=== PATIENT | female | born 1985 | race African-American/Black ===

== ENCOUNTER 2016-04-03 23:56 | Emergency (ER) | payer MEDICAID, OTHER ==
[2016-04-04] MEDS ORDERED: IPRATROPIUM/ALBUTEROL 0.5-2.5 MG/3 ML AMPUL NEB ONE ×2 (00:31→01:34)
[2016-04-04] MEDS ORDERED: PREDNISONE 20 MG TABLET PO ONE (00:31)
[2016-04-04] MEDS: ALBUTEROL SULFATE 0.083% NEB 2.5 MG/3 ML AMPUL NEB SCH (01:00)
--- NOTE | 2016-04-04 01:37 | ER Document Report ---
ED General - General Chief Complaint: Asthma Exacerbation Stated Complaint: DIFFICULTY BREATHING Notes: Patient is a 30-year-old female with past medical history of asthma who presents with 2 days of progressively worsening shortness of breath and cough. States this feels similar to asthma exacerbations that she has had in the past. She has had one prior hospitalization for her asthma past but has never required intubation. States that she's been using an albuterol inhaler at home with minimal improvement of her symptoms. Nothing worsens her symptoms. She has not seen her primary care doctor regarding today's concerns. Denies any fever, increased sputum production, syncope, or chest pain. TRAVEL OUTSIDE OF THE [place] IN LAST 30 DAYS: No Past Medical History - General Information source: Patient - Social History Smoking Status: Never Smoker Chew tobacco use (# tins/day): No Frequency of alcohol use: Social Drug Abuse: None Lives with: Spouse/Significant other Family History: Reviewed & Not Pertinent Patient has suicidal ideation: No Patient has homicidal ideation: No Pulmonary Medical History: Reports: Hx Asthma Renal/ Medical History: Denies: Hx Peritoneal Dialysis Surgical Hx: Negative Review of Systems - Review of Systems Notes: Constitutional: Negative for fever. HENT: Negative for sore throat. Eyes: Negative for visual changes. Cardiovascular: Negative for chest pain. Respiratory: Positive for shortness of breath. Gastrointestinal: Negative for abdominal pain, vomiting or diarrhea. Genitourinary: Negative for dysuria. Musculoskeletal: Negative for back pain. Skin: Negative for rash. Neurological: Negative for headaches, weakness or numbness. 10 point ROS negative except as marked above and in HPI. Physical Exam - Vital signs Vitals: Temp Pulse Resp BP Pulse Ox 98.1 F 113 H 24 H 154/90 H 97 04/04/16 00:05 04/04/16 00:05 04/04/16 00:05 04/04/16 00:05 04/04/16 00:05 Interpretation: Tachycardic, Tachypneic Notes: PHYSICAL EXAMINATION: GENERAL: Well-appearing, well-nourished and in no acute distress. HEAD: Atraumatic, normocephalic. EYES: Pupils equal round and reactive to light, extraocular movements intact, sclera anicteric, conjunctiva are normal. ENT: nares patent, oropharynx clear without exudates. Moist mucous membranes. NECK: Normal range of motion, supple without lymphadenopathy LUNGS: Breath sounds clear to auscultation bilaterally and equal. Faint expiratory wheezing bilaterally. No respiratory distress HEART: Regular rate and rhythm without murmurs ABDOMEN: Soft, nontender, normoactive bowel sounds. No guarding, no rebound. No masses appreciated. EXTREMITIES: Normal range of motion, no pitting or edema. No cyanosis. NEUROLOGICAL: No focal neurological deficits. Moves all extremities spontaneously and on command. PSYCH: Normal mood, normal affect. SKIN: Warm, Dry, normal turgor, no rashes or lesions noted. Course - Re-evaluation Re-evalutation: 04/04/16 01:34 Patient presents with a mild exacerbation of their baseline asthma. Mild wheezing at time of presentation but vitals do not show significant hypoxemia or tachypnea at time of my assessment. No retractions. Patient did clinically improve after receiving nebulizers here in the emergency department. Chest x- ray without evidence of an acute pneumonia. Patient able to ambulate without any respiratory distress. Based on patient's overall reassuring assessment, I believe they are stable for outpatient management with steroids. I do not suspect an acute alternative pathology at this time based on history and exam including acute pulmonary embolus, ACS, pneumothorax, or aortic dissection. At this time will discharge with return precautions and follow-up recommendations. Verbal discharge instructions given a the bedside and opportunity for questions given. Medication warnings reviewed. Patient is in agreement with this plan and has verbalized understanding of return precautions and the need for primary care follow-up in the next 24-72 hours. - Vital Signs Vital signs: Temp Pulse Resp BP Pulse Ox 98.1 F 113 H 24 H 154/90 H 97 04/04/16 00:05 04/04/16 00:05 04/04/16 00:05 04/04/16 00:05 04/04/16 00:05 - Diagnostic Test Radiology reviewed: Image reviewed, Reports reviewed Radiology results interpreted by me: 04/04/16 03:07 Chest x-ray: No acute infiltrate Discharge - Discharge Clinical Impression: Asthma exacerbation Condition: Good Disposition: HOME, SELF-CARE Additional Instructions: You were seen for an asthma exacerbation. Your symptoms improved with treatment here in the emergency department. However, it is very important that you return to the emergency department immediately if you began to have worsening difficulty breathing that does not respond to your normal home nebulizers. You are also being sent home on a five-day course of steroids that you should start taking tomorrow. Please also follow closely with your primary care physician. you should also return to emergency department if you develop fever greater than 101, persistent cough, persistent vomiting, pass out, or any other symptoms that are concerning to you. Prescriptions: Prednisone [Deltasone 20 mg Tablet] 3 tab PO DAILY 5 Days Referrals: LANETTE MCBRIDE MD [Primary Care Provider] - Follow up tomorrow
[2016-04-04] MEDS ORDERED: ALBUTEROL SULFATE HFA (90 MCG/PUFF) 8 GM MDI (1 MDI/ER DISP) IH PRN (03:08)
[2016-04-04] MEDS ORDERED: HYDROCODONE/ACETAMINOPHEN 5-325 MG TABLET PO ONE (03:38)
[2016-04-04 03:48] VITALS: BP 152/66
== END 2016-04-04 03:49 | disposition home or self-care (01) ==
LOC: ER 23:56
DX: J45.901 Unspecified asthma with (acute) exacerbation (principal); R00.0 Tachycardia, unspecified
CPT/HCPCS: 94640 ×2; 99285; 71020; J7512; J3490; J7620

== ENCOUNTER 2016-04-18 19:52 | Emergency (ER) | payer OTHER ==
[2016-04-18] MEDS ORDERED: PREDNISONE 20 MG TABLET PO ONE (20:05)
[2016-04-18] MEDS ORDERED: IPRATROPIUM BROMIDE 0.02% NEB 0.5 MG/2.5 ML AMPUL NEB ONE (20:05)
--- NOTE | 2016-04-18 20:08 | ER Document Report ---
ED Medical Screen (RME) - General Stated Complaint: DIFFICULTY BREATHING Time seen by provider: 20:06 Mode of Arrival: Ambulatory Information source: Patient Notes: 30-year-old female presents to ED for cough congestion wheezing shortness of breath but denies fever. States she has had this going on for 2 weeks that she' s been here last and she has been using her nebulizer and inhaler. States she' s been to Dr. White also. I have greeted and performed a rapid initial assessment of this patient. A comprehensive ED assessment and evaluation of the patient, analysis of test results and completion of medical decision making process will be conducted by an additional ED providers. TRAVEL OUTSIDE OF THE [place] IN LAST 30 DAYS: No - Related Data Allergies/Adverse Reactions: No Known Allergies Allergy (Unverified 04/18/16 20:04) Past Medical History Pulmonary Medical History: Reports: Hx Asthma Renal/ Medical History: Denies: Hx Peritoneal Dialysis Physical Exam - Vital signs Vitals: Temp Pulse Resp BP Pulse Ox 98.1 F 110 H 18 150/78 H 97 04/18/16 19:58 04/18/16 19:58 04/18/16 19:58 04/18/16 19:58 04/18/16 19:58 Course - Vital Signs Vital signs: Temp Pulse Resp BP Pulse Ox 98.1 F 110 H 18 150/78 H 97 04/18/16 19:58 04/18/16 19:58 04/18/16 19:58 04/18/16 19:58 04/18/16 19:58
[2016-04-18] MEDS: ALBUTEROL SULFATE 0.083% NEB 2.5 MG/3 ML AMPUL NEB SCH ×2 (20:13→20:39)
[2016-04-18] MEDS ORDERED: NORMAL SALINE 1000 ML 1,000 ML IV ONE (22:07)
[2016-04-18] MEDS ORDERED: HYDROCODONE/ACETAMINOPHEN 5-325 MG TABLET PO ONE (22:07)
--- NOTE | 2016-04-18 22:09 | ER Document Report ---
ED Respiratory Problem - General Chief Complaint: Breathing Difficulty Stated Complaint: DIFFICULTY BREATHING Mode of Arrival: Ambulatory Notes: Patient is a 30-year-old female that comes emergency department for chief complaint of wheezing, cough, difficulty resting, and occasionally coughing until she throws up. She states she was seen here about 2 weeks ago, she has seen her primary care provider who put her on Tessalon, Flonase, Spiriva, in addition to her albuterol treatments at home. She denies fever. She states that she has not slept in a couple of days because she cannot stop coughing. She denies any smoking history. She denies any other medical problems. TRAVEL OUTSIDE OF THE [place] IN LAST 30 DAYS: No - Related Data Allergies/Adverse Reactions: No Known Allergies Allergy (Unverified 04/18/16 20:04) Past Medical History - General Information source: Patient - Social History Smoking Status: Never Smoker Chew tobacco use (# tins/day): No Frequency of alcohol use: None Drug Abuse: None Lives with: Family Family History: Reviewed & Not Pertinent Patient has suicidal ideation: No Patient has homicidal ideation: No Pulmonary Medical History: Reports: Hx Asthma Renal/ Medical History: Denies: Hx Peritoneal Dialysis Surgical Hx: Negative - Immunizations Immunizations up to date: Yes Hx Diphtheria, Pertussis, Tetanus Vaccination: Yes Review of Systems - Review of Systems Constitutional: See HPI EENT: See HPI Cardiovascular: No symptoms reported Respiratory: See HPI Gastrointestinal: See HPI Genitourinary: No symptoms reported Female Genitourinary: No symptoms reported Musculoskeletal: No symptoms reported Skin: No symptoms reported Hematologic/Lymphatic: No symptoms reported Neurological/Psychological: No symptoms reported Physical Exam - Vital signs Vitals: Temp Pulse Resp BP Pulse Ox 98.1 F 110 H 18 150/78 H 97 04/18/16 19:58 04/18/16 19:58 04/18/16 19:58 04/18/16 19:58 04/18/16 19:58 Interpretation: Normal - General General appearance: Appears well, Alert In distress: None - Patient alert, talkative, well appearing - HEENT Head: Normocephalic, Atraumatic Eyes: Normal Pupils: PERRL - Respiratory Respiratory status: No respiratory distress. No: Respiratory distress, Labored , Tachypnea Chest status: Nontender Breath sounds: Nonproductive cough - Occasional coughing episodes, Wheezing - Patient does have slight end expiratory wheezing Chest palpation: Normal - Cardiovascular Rhythm: Regular. No: Tachycardia - No tachycardia on my exam Heart sounds: Normal auscultation, S1 appreciated, S2 appreciated Murmur: No - Abdominal Inspection: Normal Distension: No distension Bowel sounds: Normal Tenderness: Nontender Organomegaly: No organomegaly - Back Back: Normal, Nontender. No: Tender - Extremities General upper extremity: Normal inspection, Nontender, Normal color, Normal ROM , Normal temperature General lower extremity: Normal inspection, Nontender, Normal color, Normal ROM , Normal temperature, Normal weight bearing. No: Juanita's sign - Neurological Neuro grossly intact: Yes Cognition: Normal Orientation: AAOx4 [place] Coma Scale Eye Opening: Spontaneous [place] Coma Scale Verbal: Oriented [place] Coma Scale Motor: Obeys Commands [place] Coma Scale Total: 15 Speech: Normal Motor strength normal: LUE, RUE, LLE, RLE Sensory: Normal - Psychological Associated symptoms: Normal affect, Normal mood - Skin Skin Temperature: Warm Skin Moisture: Dry Skin Color: Normal Course - Re-evaluation Re-evalutation: Patient significantly improved on reexamination, talking in full sentences, smiling and laughing. Very faint expiratory wheezing now. Occasional coughing episodes. Chest x-ray is unremarkable again. Patient is not hypoxic. Will complete magnesium. On reevaluation patient still well-appearing, 78 go home, providing with steroids, symptom management, instructed close primary care follow-up, discussed return precautions, patient states understanding and agreement. 04/19/16 05:35 - Vital Signs Vital signs: Temp Pulse Resp BP Pulse Ox 98.1 F 98 22 H 148/78 H 97 04/18/16 19:58 04/19/16 01:24 04/18/16 22:10 04/19/16 01:24 04/19/16 01:24 Discharge - Discharge Clinical Impression: Cough, Wheezing, Asthma exacerbation Upper respiratory infection Qualifiers: URI type: unspecified URI Qualified Code(s): J06.9 - Acute upper respiratory infection, unspecified Condition: Stable Disposition: HOME, SELF-CARE Additional Instructions: Chest x-ray does not show any abnormality, examination is consistent with bronchitis and asthma exacerbation. Take prednisone as directed, take the Dougherty if needed for cough and to help with sleep, continue your prescribed medications and albuterol. Rest, drink plenty of fluids. Return to the emergency department for any concerning or worsening symptoms. Prescriptions: Hydrocodone/Acetaminophen [Dougherty 5-325 mg Tablet] 1 - 2 tab PO ASDIR #15 tablet Prednisone 20 mg PO DAILY #15 tablet Forms: Return to Work, Elevated Blood Pressure Referrals: LANETTE MCBRIDE MD [Primary Care Provider] - Follow up in 3-5 days
[2016-04-18] MEDS: MAGNESIUM SULFATE/D5W 100 ML IV SCH (22:21)
[2016-04-19] MEDS: MAGNESIUM SULFATE/D5W 100 ML IV SCH (00:08)
[2016-04-19] MEDS ORDERED: HYDROCODONE/ACETAMINOPHEN 5-325 MG 6 TAB/DSPK PO PRN (01:05)
[2016-04-19 01:33] VITALS: BP 148/78
== END 2016-04-19 01:32 | disposition home or self-care (01) ==
LOC: ER 19:52
DX: J45.901 Unspecified asthma with (acute) exacerbation (principal); J06.9 Acute upper respiratory infection, unspecified; R06.02 Shortness of breath; R05 Cough
CPT/HCPCS: 94640 ×2; 99283; 96365; 71010; J3475 ×2; J7512; J7030; J3490

== ENCOUNTER 2016-05-19 17:22 | Inpatient (IN) | payer OTHER ==
[2016-05-19] MEDS ORDERED: IPRATROPIUM/ALBUTEROL 0.5-2.5 MG/3 ML AMPUL NEB ONE ×2 (17:43→19:10)
--- NOTE | 2016-05-19 17:43 | ER Document Report ---
ED Medical Screen (RME) - General Stated Complaint: SHORTNESS OF BREATH Notes: 30 yo asthmatic c/o increased shortness of breath and wheezing since yesterday. taking home meds without improvement. finished prednisone taper 4 days ago. no fever. TRAVEL OUTSIDE OF THE [place] IN LAST 30 DAYS: No - Related Data Allergies/Adverse Reactions: No Known Allergies Allergy (Verified 05/19/16 17:40) Past Medical History Pulmonary Medical History: Reports: Hx Asthma Renal/ Medical History: Denies: Hx Peritoneal Dialysis Past Surgical History: Reports: Hx Section - Immunizations Immunizations up to date: Yes Hx Diphtheria, Pertussis, Tetanus Vaccination: Yes Physical Exam - Vital signs Vitals: Temp Pulse Resp BP Pulse Ox 98.4 F 127 H 28 H 172/89 H 96 05/19/16 17:39 05/19/16 17:39 05/19/16 17:39 05/19/16 17:39 05/19/16 17:39 Course - Vital Signs Vital signs: Temp Pulse Resp BP Pulse Ox 98.4 F 127 H 28 H 172/89 H 96 05/19/16 17:39 05/19/16 17:39 05/19/16 17:39 05/19/16 17:39 05/19/16 17:39
[2016-05-19] MEDS ORDERED: PREDNISONE 20 MG TABLET PO ONE (17:44)
[2016-05-19 18:05] LABS: ABSOLUTE EOSINOPHILS # (AUTO) 0.8 10^3/uL (0.0-0.6); ABSOLUTE LYMPHOCYTES (AUTO) 1.7 10^3/uL (0.5-4.7); ABSOLUTE MONOCYTES (AUTO) 0.9 10^3/uL (0.1-1.4); BASOPHILS % (AUTO) 0.2 % (0-2); EOSINOPHILS % (AUTO) 6.4 % (0-6); HEMATOCRIT 37.6 % (36.0-47.0); HEMOGLOBIN 12.5 g/dL (12.0-15.5); HGB HCT DIFFERENCE -0.1; LYMPHOCYTES % (AUTO) 13.5 % (13-45); MEAN CORPUSCULAR HEMOGLOBIN 26.4 pg (27.0-33.4); MEAN CORPUSCULAR HGB CONC 33.2 g/dL (32.0-36.0); MEAN CORPUSCULAR VOLUME 80 fl (80-97); MONOCYTES % (AUTO) 7.1 % (3-13); RED BLOOD COUNT 4.73 10^6/uL (3.72-5.28); RED CELL DISTRIBUTION WIDTH 14.9 % (11.5-14.0); SEGMENTED NEUTROPHILS % (AUTO) 72.8 % (42-78); WHITE BLOOD COUNT 12.4 10^3/uL (4.0-10.5)
[2016-05-19] MEDS ORDERED: ALBUTEROL SULFATE 0.083% NEB 2.5 MG/3 ML AMPUL NEB ONE ×2 (18:09→21:06)
--- NOTE | 2016-05-19 18:16 | ER Document Report ---
ED Respiratory Problem - General Mode of Arrival: Ambulatory Information source: Patient TRAVEL OUTSIDE OF THE [place] IN LAST 30 DAYS: No - HPI Patient complains to provider of: Asthma, Short of breath Onset: Yesterday Duration: Continuous Initiating Event: URI Quality of pain: No pain Severity: Moderate Context: Hx asthma. denies: Smoker Short of Breath: Moderate Cough: Nonproductive Sputum amount: None At home treatment: Bronchodilators, Oral steroids - FINISHED A 12-DAY TAPER OF PREDNISONE 2 DAYS AGO, Anuradha Associated symptoms: Cough, Wheezing Similar symptoms previously: Yes Recently seen / treated by doctor: Yes <CLOVER TAYLOR - Last Filed: 05/19/16 20:27> <YOMAIRA GEORGES - Last Filed: 05/19/16 21:51> - General Chief Complaint: Asthma Exacerbation Stated Complaint: SHORTNESS OF BREATH - Related Data Allergies/Adverse Reactions: No Known Allergies Allergy (Verified 05/19/16 17:40) Past Medical History - General Information source: Patient - Social History Smoking Status: Unknown if Ever Smoked Cigarette use (# per day): No Chew tobacco use (# tins/day): No Frequency of alcohol use: None Drug Abuse: None Lives with: Family Family History: Reviewed & Not Pertinent Patient has suicidal ideation: No Patient has homicidal ideation: No - Past Medical History Cardiac Medical History: Reports: None Pulmonary Medical History: Reports: Hx Asthma EENT Medical History: Reports: None Neurological Medical History: Reports: None Endocrine Medical History: Reports: None Renal/ Medical History: Reports: None. Denies: Hx Peritoneal Dialysis Malignancy Medical History: Reports: None GI Medical History: Reports: None Musculoskeltal Medical History: Reports None Psychiatric Medical History: Reports: None Past Surgical History: Reports: Hx Section - Immunizations Immunizations up to date: Yes Hx Diphtheria, Pertussis, Tetanus Vaccination: Yes <CLOVER TAYLOR - Last Filed: 05/19/16 20:27> Review of Systems - Review of Systems Constitutional: No symptoms reported EENT: No symptoms reported Cardiovascular: No symptoms reported Respiratory: See HPI Gastrointestinal: No symptoms reported Genitourinary: No symptoms reported Female Genitourinary: No symptoms reported. denies: Musculoskeletal: No symptoms reported Skin: No symptoms reported Neurological/Psychological: No symptoms reported <CLOVER TAYLOR - Last Filed: 05/19/16 20:27> Physical Exam - Vital signs Interpretation: Tachycardic, Tachypneic. No: Hypoxic, Febrile - General General appearance: Alert, Anxious In distress: Mild - RESP - HEENT Head: Normocephalic Eyes: Normal Conjunctiva: Normal Ears: Normal Nasal: Normal Mouth/Lips: Normal Mucous membranes: Normal Pharynx: Normal Neck: Normal - Respiratory Respiratory status: Respiratory distress Chest status: Nontender Breath sounds: Wheezing - ALL LUNG CHAMPION., Other - PROLONGD EXP. PHASE - Cardiovascular Rhythm: Regular, Tachycardia Heart sounds: Normal auscultation Murmur: No - Abdominal Inspection: Normal - Back Back: Normal - Extremities General upper extremity: Normal inspection General lower extremity: Normal inspection - Neurological Neuro grossly intact: Yes Cognition: Normal Orientation: AAOx4 - Psychological Associated symptoms: Normal affect, Normal mood - Skin Skin Temperature: Warm Skin Moisture: Dry Skin Color: Normal Skin Turgor: Elastic <CLOVER TAYLOR - Last Filed: 05/19/16 20:27> Course - Laboratory Result Diagrams: 05/19/16 19:30 05/19/16 19:30 - EKG Interpretation by Ri EKG shows normal: Sinus rhythm, [place], Intervals, QRS Complexes, ST-T Waves Rate: Tachycardia - Transfer of Care Care transferred to following provider: DR. GEORGES @2030 hrs <CLOVER TAYLOR - Last Filed: 05/19/16 20:27> - Laboratory Result Diagrams: 05/19/16 19:30 05/19/16 19:30 <YOMAIRA GEORGES - Last Filed: 05/19/16 21:51> - Vital Signs Vital signs: Temp Pulse Resp BP Pulse Ox 98.4 F 127 H 29 H 153/101 H 97 05/19/16 17:39 05/19/16 17:39 05/19/16 19:01 05/19/16 19:01 05/19/16 19:01 - Laboratory Laboratory results interpreted by wy: 05/19/16 05/19/16 05/19/16 17:50 17:50 19:30 WBC 12.4 H 11.7 H MCV 79 L MCH 26.4 L 26.7 L RDW 14.9 H 15.2 H Eosinophils % 6.4 H 6.2 H Absolute Neutrophils 9.0 H 8.5 H Absolute Eosinophils 0.8 H 0.7 H D-Dimer Potassium 3.5 L BUN 4 L Creatinine 05/19/16 05/19/16 19:30 19:30 WBC MCV MCH RDW Eosinophils % Absolute Neutrophils Absolute Eosinophils D-Dimer 0.56 H Potassium BUN 3 L Creatinine 0.47 L Discharge <CLOVER TAYLOR - Last Filed: 05/19/16 20:27> - Discharge Admitting Provider: [facility] Unit Admitted: [facility] <YOMAIRA GEORGES - Last Filed: 05/19/16 21:51> - Discharge Clinical Impression: Respiratory distress, Asthma exacerbation Condition: Fair Disposition: ADMITTED INPATIENT
[2016-05-19 18:22] LABS: ANION GAP 13 (5-19); BLOOD UREA NITROGEN 4 mg/dL (7-20); CALCIUM 9.2 mg/dL (8.4-10.2); CARBON DIOXIDE 24 mmol/L (22-30); CHLORIDE 102 mmol/L (98-107); CREATININE RESULT 0.54 mg/dL (0.52-1.25); GLUCOSE 93 mg/dL (75-110); POTASSIUM 3.5 mmol/L (3.6-5.0); SODIUM 138.5 mmol/L (137-145); TOTAL PROTEIN 6.9 g/dL (6.3-8.2)
[2016-05-19 18:23] LABS: ALANINE AMINOTRANSFERASE 35 U/L (9-52); ALKALINE PHOSPHATASE 63 U/L (38-126); ASPARTATE AMINO TRANSFERASE 22 U/L (14-36); BILIRUBIN,DIRECT 0.1 mg/dL (0.0-0.4); BILIRUBIN,TOTAL 0.4 mg/dL (0.2-1.3)
[2016-05-19] MEDS ORDERED: DEXAMETHASONE SOD PHOS INJ 10 MG/1 ML VIAL IV ONE (19:11)
[2016-05-19 19:39] LABS: ABSOLUTE BASOPHILS # (AUTO) 0.1 10^3/uL (0.0-0.2); ABSOLUTE EOSINOPHILS # (AUTO) 0.7 10^3/uL (0.0-0.6); ABSOLUTE LYMPHOCYTES (AUTO) 1.7 10^3/uL (0.5-4.7); ABSOLUTE MONOCYTES (AUTO) 0.8 10^3/uL (0.1-1.4); ABSOLUTE NEUT (AUTO) 8.5 10^3/uL (1.7-8.2); BASOPHILS % (AUTO) 0.4 % (0-2); EOSINOPHILS % (AUTO) 6.2 % (0-6); HEMATOCRIT 37.5 % (36.0-47.0); HEMOGLOBIN 12.7 g/dL (12.0-15.5); HGB HCT DIFFERENCE 0.6; LYMPHOCYTES % (AUTO) 14.4 % (13-45); MEAN CORPUSCULAR HEMOGLOBIN 26.7 pg (27.0-33.4); MEAN CORPUSCULAR HGB CONC 33.7 g/dL (32.0-36.0); MEAN CORPUSCULAR VOLUME 79 fl (80-97); MONOCYTES % (AUTO) 6.5 % (3-13); RED BLOOD COUNT 4.75 10^6/uL (3.72-5.28); RED CELL DISTRIBUTION WIDTH 15.2 % (11.5-14.0); SEGMENTED NEUTROPHILS % (AUTO) 72.5 % (42-78); WHITE BLOOD COUNT 11.7 10^3/uL (4.0-10.5)
[2016-05-19 19:57] LABS: ALANINE AMINOTRANSFERASE 35 U/L (9-52); ALBUMIN 3.9 g/dL (3.5-5.0); ALKALINE PHOSPHATASE 67 U/L (38-126); ASPARTATE AMINO TRANSFERASE 24 U/L (14-36); BILIRUBIN,DIRECT 0.1 mg/dL (0.0-0.4); BILIRUBIN,TOTAL 0.4 mg/dL (0.2-1.3); BLOOD UREA NITROGEN 3 mg/dL (7-20); CALCIUM 9.2 mg/dL (8.4-10.2); CARBON DIOXIDE 24 mmol/L (22-30); CHLORIDE 104 mmol/L (98-107); CREATINE KINASE 91 U/L (30-135); CREATININE RESULT 0.47 mg/dL (0.52-1.25); GLUCOSE 95 mg/dL (75-110); POTASSIUM 3.7 mmol/L (3.6-5.0); TOTAL PROTEIN 6.7 g/dL (6.3-8.2)
[2016-05-19 20:00] LABS: ANION GAP 10 (5-19); SODIUM 137.8 mmol/L (137-145)
[2016-05-19 20:09] LABS: CREATINE KINASE MB 0.57 ng/mL (<4.55)
[2016-05-19 20:10] LABS: TROPONIN I < 0.012 ng/mL
[2016-05-19] MEDS ORDERED: MAGNESIUM SULFATE PF/INJ 40 MEQ/10 ML SDV IV ONE (20:24)
[2016-05-19] MEDS ORDERED: MAGNESIUM SULFATE/D5W 100 ML IV SCH (21:00)
--- NOTE | 2016-05-19 21:09 | ER Document Report ---
Doctor's Note Notes: 05/19/16 21:07 Care of this patient was transferred to me by Dr. Ant Perez. When she says the patient shortly after receiving signout. Immediately upon entering the room , patient was visibly in respiratory distress with tachypnea at 37 breast per minute. She has labored respirations with supraclavicular retractions. She has diffuse wheezing in all lung coreas worsen the expiratory phase. She was tachycardic at 128. Patient appears to be in moderate to severe respiratory distress and I immediately contacted respiratory therapy to place patient on BiPAP with continuous in-line nebulization of albuterol. Patient is severely ill at this time will require additional reassessments and admission. 05/19/16 21:49 On repeat assessment patient's work of breathing has significantly improved on BiPAP. A low dose of ketamine 15 mg IV was given for anxiolysis and bronchodilation. Continuous nebulizers are ongoing. She continues to have significant expiratory wheezing in all lung coreas although air movement is much improved. Discussed this case with Dr. Gann who has accepted for admission. Critical care time: 32 minutes Critical care time spent obtaining history from patient or surrogate, discussions with consultants, development of treatment plan with patient or surrogate, evaluation of patient's response to treatment, examination of patient , ordering and performing treatments and interventions, ordering and review of laboratory studies, re-evaluation of patient's condition, ordering and review of radiographic studies and review of old charts
[2016-05-19] MEDS ORDERED: KETAMINE HCL INJ 500 MG/10 ML VIAL IV ONE (21:16)
[2016-05-19] MEDS ORDERED: ACETAMINOPHEN 325 MG TABLET PO PRN (21:34)
[2016-05-19] MEDS ORDERED: GUAIFENESIN SYRP 200 MG/10 ML UDC PO PRN (21:34)
[2016-05-19] MEDS ORDERED: ALBUTEROL SULFATE 0.083% NEB 2.5 MG/3 ML AMPUL NEB PRN (21:34)
[2016-05-19] MEDS: GUAIFENESIN 600 MG TABLET.SA PO SCH (22:00)
[2016-05-19] MEDS: HEPARIN SOD (PORCINE) 5,000 UNIT/ML 1 ML SYRINGE SUBCUT SCH (22:00)
[2016-05-19] MEDS ORDERED: LORATADINE 10 MG TABLET PO ONE (22:00)
[2016-05-19] MEDS ORDERED: METHYLPREDNISOLONE INJ 125 MG/2 ML SDV IV SCH (22:00)
[2016-05-19 23:47] LABS: VENOUS BLOOD BASE EXCESS -3.6 mmol/L; VENOUS BLOOD HCO3 21.7 mmol/L (20-32); VENOUS BLOOD PCO2 40.1 mmHg (35-63); VENOUS BLOOD PH 7.35 (7.30-7.42)
[2016-05-20] MEDS ORDERED: PREDNISONE 20 MG TABLET PO ONE (00:15)
[2016-05-20] MEDS: FAMOTIDINE INJ/PF 20 MG/2 ML SDV IV SCH ×3 (00:35→21:57)
[2016-05-20] MEDS: FLUTICASONE NASAL SPRAY 50 MCG/SPRY 120 SPRAY/16 GM NASL SCH ×2 (00:36→21:58)
[2016-05-20] MEDS ORDERED: SPIRONOLACTONE 25 MG TABLET PO ONE (01:00)
[2016-05-20] MEDS ORDERED: AMLODIPINE BESYLATE 10 MG TABLET PO ONE (01:00)
[2016-05-20] MEDS: IPRATROPIUM/ALBUTEROL 0.5-2.5 MG/3 ML AMPUL NEB SCH ×5 (01:30→23:40)
--- NOTE | 2016-05-20 03:14 | PDOC H&P ---
History of Present Illness Admission Date/PCP: 05/19/16 21:34 Patient complains of: Shortness of breath and wheeze History of Present Illness: LC VASQUEZ is a 30 year old female with a past medical history of lifelong asthma, morbid obesity, hypertension and recent bronchitis lasting approximately 3 months and recurrent asthma exacerbations who discontinued a prednisone taper approximate 48 hours ago and has had a nonproductive cough, wheeze and shortness of breath prompting him to seek evaluation emergency room where she's found to be in a tripod position and severe respiratory distress requiring BiPAP referred to the hospitalist for admission. Patient is unaware of underlying GERD, sinus allergies, sore throat or infectious contacts. Past Medical History Cardiac Medical History: Reports: None Pulmonary Medical History: Reports: Asthma, Bronchitis EENT Medical History: Reports: None Neurological Medical History: Reports: None Endocrine Medical History: Reports: None Renal/ Medical History: Reports: None Malignancy Medical History: Reports: None GI Medical History: Reports: None Musculoskeltal Medical History: Reports: None Psychiatric Medical History: Reports: None Denies: Tobacco Dependency Past Surgical History Past Surgical History: Reports: Section Social History Information Source: Patient Lives with: Family Smoking Status: Unknown if Ever Smoked Frequency of Alcohol Use: None Drugs: None - Advance Directive Resuscitation Status: Full Code Family History Family History: Reviewed & Not Pertinent Parental Family History Reviewed: Yes Children Family History Reviewed: Yes Sibling(s) Family History Reviewed.: Yes Medication/Allergy Home Medications: Albuterol Sulfate [Ventolin Hfa] 2 puff IH Q4 05/19/16 Ipratropium/Albuterol Sulfate [Duoneb 3 ml Ampul] 1 vial IH Q4 PRN 05/19/16 Levothyroxine Sodium 1 tab PO DAILY 05/19/16 Lisinopril/Hydrochlorothiazide [Lisinopril-Hctz 20-12.5 mg Tab] 1 tab PO DAILY 05/19/16 Montelukast Sodium [Singulair 10 mg Tablet] 10 mg PO QHS 05/19/16 Phentermine HCl 1 tab PO DAILY 05/19/16 Allergies/Adverse Reactions: No Known Allergies Allergy (Verified 05/19/16 17:40) Review of Systems ROS unobtainable: Other - Severe respiratory distress requiring BiPAP unable to speak in full sentences secondary to speech triggering cough Physical Exam Vital Signs: Temp Pulse Resp BP Pulse Ox 98.4 F 112 H 18 137/83 H 98 05/20/16 01:33 05/20/16 01:50 05/20/16 02:01 05/20/16 02:00 05/20/16 02:01 General appearance: PRESENT: cooperative, morbidly obese, severe distress Eye exam: PRESENT: conjunctiva pink, EOMI, PERRLA. ABSENT: scleral icterus Ear exam: PRESENT: normal external ear exam Mouth exam: PRESENT: moist, tongue midline Neck exam: ABSENT: carotid bruit, JVD, lymphadenopathy, thyromegaly Respiratory exam: PRESENT: accessory muscle use, crackles, prolonged expiratory phas, rales, retraction, rhonchi, symmetrical, tachypnea, wheezes. ABSENT: chest wall tenderness Cardiovascular exam: PRESENT: RRR. ABSENT: diastolic murmur, rubs, systolic murmur Pulses: PRESENT: normal dorsalis pedis pul Vascular exam: PRESENT: normal capillary refill GI/Abdominal exam: PRESENT: normal bowel sounds, soft. ABSENT: distended, guarding, mass, organolmegaly, rebound, tenderness Rectal exam: PRESENT: deferred Extremities exam: PRESENT: full ROM. ABSENT: calf tenderness, clubbing, pedal edema Neurological exam: PRESENT: alert, awake, oriented to person, oriented to place , oriented to time, oriented to situation, CN II-XII grossly intact. ABSENT: motor sensory deficit Psychiatric exam: PRESENT: appropriate affect, normal mood. ABSENT: homicidal ideation, suicidal ideation Skin exam: PRESENT: dry, intact, warm. ABSENT: cyanosis, rash Results Laboratory Results: 05/19/16 23:36 VBG pH 7.35 VBG pCO2 40.1 VBG HCO3 21.7 VBG Base Excess -3.6 Impressions: Chest X-Ray 05/19/16 17:44 IMPRESSION: NO SIGNIFICANT RADIOGRAPHIC FINDING IN THE CHEST. Assessment & Plan - Diagnosis (1) Bronchitis Is this a current diagnosis for this admission?: YesPlan: Albuterol, Atrovent, prednisone, Flonase, Claritin, Levaquin reevaluation chest imaging if not significantly improved (2) GERD (gastroesophageal reflux disease) Is this a current diagnosis for this admission?: YesPlan: Patient's habitus is at high risk for GERD I am concerned for it contributing to her asthma exacerbation she'll receive proton pump inhibitor (3) Morbid obesity Is this a current diagnosis for this admission?: YesPlan: Morbid obesity will evaluate for metabolic cause with evaluation of thyroid function and dietitian consultation (4) Asthma exacerbation Is this a current diagnosis for this admission?: YesPlan: Please see #1 I suspect her exacerbation is likely triggered to bronchitis continue BiPAP followed by peak flow evaluations as tolerated (5) Respiratory distress Is this a current diagnosis for this admission?: YesPlan: Secondary to bronchitis and asthma consider ABG and reevaluation of chest imaging if not significantly improved. - Time Time Spent: 30 to 50 Minutes - Inpatient Certification Medical Necessity: Need Close Monitoring Due to Risk of Patient Decompensation
[2016-05-20] MEDS: HEPARIN SOD (PORCINE) 5,000 UNIT/ML 1 ML SYRINGE SUBCUT SCH ×3 (06:01→22:38)
[2016-05-20 06:53] LABS: ABSOLUTE EOSINOPHILS # (AUTO) 0.1 10^3/uL (0.0-0.6); ABSOLUTE LYMPHOCYTES (AUTO) 0.8 10^3/uL (0.5-4.7); ABSOLUTE MONOCYTES (AUTO) 0.3 10^3/uL (0.1-1.4); ABSOLUTE NEUT (AUTO) 10.9 10^3/uL (1.7-8.2); BASOPHILS % (AUTO) 0.3 % (0-2); EOSINOPHILS % (AUTO) 0.5 % (0-6); HEMATOCRIT 36.4 % (36.0-47.0); HEMOGLOBIN 12.2 g/dL (12.0-15.5); HGB HCT DIFFERENCE 0.2; LYMPHOCYTES % (AUTO) 6.7 % (13-45); MEAN CORPUSCULAR HEMOGLOBIN 26.2 pg (27.0-33.4); MEAN CORPUSCULAR HGB CONC 33.5 g/dL (32.0-36.0); MEAN CORPUSCULAR VOLUME 78 fl (80-97); MONOCYTES % (AUTO) 2.7 % (3-13); RED BLOOD COUNT 4.65 10^6/uL (3.72-5.28); RED CELL DISTRIBUTION WIDTH 15.3 % (11.5-14.0); SEGMENTED NEUTROPHILS % (AUTO) 89.8 % (42-78); WHITE BLOOD COUNT 12.1 10^3/uL (4.0-10.5)
[2016-05-20 07:14] LABS: ANION GAP 11 (5-19); BLOOD UREA NITROGEN 5 mg/dL (7-20); CALCIUM 9.6 mg/dL (8.4-10.2); CARBON DIOXIDE 20 mmol/L (22-30); CHLORIDE 105 mmol/L (98-107); CREATININE RESULT 0.43 mg/dL (0.52-1.25); GLUCOSE 151 mg/dL (75-110); POTASSIUM 4.2 mmol/L (3.6-5.0)
[2016-05-20] MEDS ORDERED: LANSOPRAZOLE 30 MG TAB.RAP.DR PO ONE (08:15)
--- NOTE | 2016-05-20 08:16 | EKG REPORT ---
SEVERITY:- OTHERWISE NORMAL ECG - SINUS TACHYCARDIA : Confirmed by: Jodie Jackson 20-May-2016 08:15:43
[2016-05-20] MEDS ORDERED: LEVOTHYROXINE SODIUM 0.025 MG TABLET PO SCH (10:00)
[2016-05-20] MEDS: LEVOFLOXACIN 750 MG/D5W RTU 150 ML IV SCH (11:30)
[2016-05-20] MEDS: PREDNISONE 20 MG TABLET PO SCH ×2 (11:34→17:24)
[2016-05-20] MEDS: LORATADINE 10 MG TABLET PO SCH (11:34)
[2016-05-20] MEDS: GUAIFENESIN 600 MG TABLET.SA PO SCH ×2 (11:34→21:56)
[2016-05-20] MEDS: LEVOTHYROXINE SODIUM 0.025 MG TABLET PO SCH (11:35)
[2016-05-20] MEDS ORDERED: LORAZEPAM INJ 2 MG/1 ML VIAL IV PRN (12:15)
[2016-05-20] MEDS ORDERED: IPRATROPIUM/ALBUTEROL 0.5-2.5 MG/3 ML AMPUL NEB PRN (13:21)
[2016-05-20] MEDS: LANSOPRAZOLE 30 MG TAB.RAP.DR PO SCH (17:24)
[2016-05-20] MEDS: MONTELUKAST SODIUM 10 MG TABLET PO SCH (21:57)
[2016-05-21 04:35] LABS: ABSOLUTE EOSINOPHILS # (AUTO) 0.1 10^3/uL (0.0-0.6); ABSOLUTE LYMPHOCYTES (AUTO) 1.4 10^3/uL (0.5-4.7); ABSOLUTE NEUT (AUTO) 12.3 10^3/uL (1.7-8.2); BASOPHILS % (AUTO) 0.1 % (0-2); EOSINOPHILS % (AUTO) 0.4 % (0-6); HEMATOCRIT 32.1 % (36.0-47.0); HGB HCT DIFFERENCE 0.9; LYMPHOCYTES % (AUTO) 9.5 % (13-45); MEAN CORPUSCULAR HEMOGLOBIN 26.8 pg (27.0-33.4); MEAN CORPUSCULAR HGB CONC 34.2 g/dL (32.0-36.0); MEAN CORPUSCULAR VOLUME 79 fl (80-97); MONOCYTES % (AUTO) 6.5 % (3-13); RED BLOOD COUNT 4.08 10^6/uL (3.72-5.28); RED CELL DISTRIBUTION WIDTH 15.2 % (11.5-14.0); SEGMENTED NEUTROPHILS % (AUTO) 83.5 % (42-78); WHITE BLOOD COUNT 14.7 10^3/uL (4.0-10.5)
[2016-05-21] MEDS: IPRATROPIUM/ALBUTEROL 0.5-2.5 MG/3 ML AMPUL NEB SCH ×5 (04:55→20:07)
[2016-05-21] MEDS: HEPARIN SOD (PORCINE) 5,000 UNIT/ML 1 ML SYRINGE SUBCUT SCH ×3 (05:56→23:46)
[2016-05-21] MEDS: LANSOPRAZOLE 30 MG TAB.RAP.DR PO SCH ×2 (05:57→17:05)
[2016-05-21] MEDS: FAMOTIDINE INJ/PF 20 MG/2 ML SDV IV SCH ×2 (10:20→21:29)
[2016-05-21] MEDS: GUAIFENESIN 600 MG TABLET.SA PO SCH ×2 (11:12→21:29)
[2016-05-21] MEDS: LEVOTHYROXINE SODIUM 0.025 MG TABLET PO SCH (11:12)
[2016-05-21] MEDS: BUDESONIDE/FORMOTEROL 160-4.5 MCG 60 PUFF/6 GM MDI IH SCH ×2 (11:12→21:30)
[2016-05-21] MEDS: LEVOFLOXACIN 750 MG/D5W RTU 150 ML IV SCH (11:13)
[2016-05-21] MEDS: LORATADINE 10 MG TABLET PO SCH (11:13)
[2016-05-21] MEDS ORDERED: METHYLPREDNISOLONE INJ 125 MG/2 ML SDV IV SCH (12:00)
--- NOTE | 2016-05-21 14:47 | PDOC PROGRESS REPORT ---
Subjective Progress Note for:: 05/20/16 Subjective:: Patient seen on morning rounds. She is presently resting comfortably in bed on BiPAP. She states her breathing has improved since admission. She continues to be short of breath and dyspnea however with exertion. She has no productive cough at the present time. She denies fever or chills. She denies any nausea, vomiting, or abdominal pain. She denies any significant arthralgias or myalgias. Rest of the review systems is negative. Physical Exam Vital Signs: Temp Pulse Resp BP Pulse Ox 97.6 F 101 H 23 H 149/83 H 98 05/20/16 11:38 05/20/16 12:07 05/20/16 12:07 05/20/16 11:38 05/20/16 12:07 Intake & Output 05/19/16 05/20/16 05/21/16 06:59 06:59 06:59 Intake Total 160 0 Balance 160 0 Weight 104.5 kg General appearance: PRESENT: no acute distress, obese, well-developed, well- nourished Head exam: PRESENT: atraumatic, normocephalic Eye exam: PRESENT: conjunctiva pink, EOMI, PERRLA. ABSENT: scleral icterus Ear exam: PRESENT: normal external ear exam Mouth exam: PRESENT: moist, tongue midline Neck exam: ABSENT: carotid bruit, JVD, lymphadenopathy, thyromegaly Respiratory exam: PRESENT: decreased breath sounds, symmetrical, unlabored, wheezes Cardiovascular exam: PRESENT: RRR. ABSENT: diastolic murmur, rubs, systolic murmur Pulses: PRESENT: normal dorsalis pedis pul Vascular exam: PRESENT: normal capillary refill GI/Abdominal exam: PRESENT: normal bowel sounds, soft. ABSENT: distended, guarding, mass, organolmegaly, rebound, tenderness Rectal exam: PRESENT: deferred Extremities exam: PRESENT: full ROM. ABSENT: calf tenderness, clubbing, pedal edema Neurological exam: PRESENT: alert, awake, oriented to person, oriented to place , oriented to time, oriented to situation, CN II-XII grossly intact. ABSENT: motor sensory deficit Psychiatric exam: PRESENT: appropriate affect, normal mood. ABSENT: homicidal ideation, suicidal ideation Skin exam: PRESENT: dry, intact, warm. ABSENT: cyanosis, rash Results Laboratory Results: 05/20/16 06:16 05/20/16 06:16 05/19/16 05/20/16 05/20/16 23:36 06:16 06:16 WBC 12.1 H RBC 4.65 Hgb 12.2 Hct 36.4 MCV 78 L MCH 26.2 L MCHC 33.5 RDW 15.3 H Plt Count 318 Seg Neutrophils % 89.8 H Lymphocytes % 6.7 L Monocytes % 2.7 L Eosinophils % 0.5 Basophils % 0.3 Absolute Neutrophils 10.9 H Absolute Lymphocytes 0.8 Absolute Monocytes 0.3 Absolute Eosinophils 0.1 Absolute Basophils 0.0 VBG pH 7.35 VBG pCO2 40.1 VBG HCO3 21.7 VBG Base Excess -3.6 Sodium 136.0 L Potassium 4.2 Chloride 105 Carbon Dioxide 20 L Anion Gap 11 BUN 5 L Creatinine 0.43 L Est GFR ( Amer) > 60 Est GFR (Non-Af Amer) > 60 Glucose 151 H Calcium 9.6 Impressions: Chest X-Ray 05/19/16 17:44 IMPRESSION: NO SIGNIFICANT RADIOGRAPHIC FINDING IN THE CHEST. Assessment & Plan - Diagnosis (1) Asthma exacerbation Is this a current diagnosis for this admission?: YesPlan: Continue IV steroids, antibiotics and inhalers or treatments. (2) Bronchitis Is this a current diagnosis for this admission?: YesPlan: Continue IV steroids, villager treatments and antibiotics. BiPAP for distress. (3) GERD (gastroesophageal reflux disease) Is this a current diagnosis for this admission?: Yes
--- NOTE | 2016-05-21 14:50 | PDOC PROGRESS REPORT ---
Subjective Progress Note for:: 05/21/16 Subjective:: Patient seen on morning rounds. She is presently resting comfortably in bed off BIPAP. She states her breathing has improved since admission. She continues to be short of breath and dyspnea however with exertion and has diffuse wheezing. She has no productive cough at the present time. She denies fever or chills. She denies any nausea, vomiting, or abdominal pain. She denies any significant arthralgias or myalgias. Rest of the review systems is negative. Physical Exam Vital Signs: Temp Pulse Resp BP Pulse Ox 98.3 F 103 H 20 130/75 H 97 05/21/16 11:47 05/21/16 11:47 05/21/16 11:47 05/21/16 11:47 05/21/16 11:47 Intake & Output 05/20/16 05/21/16 05/22/16 06:59 06:59 06:59 Intake Total 1365 355 Balance 1365 355 Weight 104 kg General appearance: PRESENT: no acute distress, obese, well-developed, well- nourished Head exam: PRESENT: atraumatic, normocephalic Eye exam: PRESENT: conjunctiva pink, EOMI, PERRLA. ABSENT: scleral icterus Ear exam: PRESENT: normal external ear exam Mouth exam: PRESENT: moist, tongue midline Neck exam: ABSENT: carotid bruit, JVD, lymphadenopathy, thyromegaly Respiratory exam: PRESENT: symmetrical, unlabored, wheezes - bilaterally expiratory Cardiovascular exam: PRESENT: RRR. ABSENT: diastolic murmur, rubs, systolic murmur Pulses: PRESENT: normal dorsalis pedis pul Vascular exam: PRESENT: normal capillary refill GI/Abdominal exam: PRESENT: normal bowel sounds, soft. ABSENT: distended, guarding, mass, organolmegaly, rebound, tenderness Rectal exam: PRESENT: deferred Extremities exam: PRESENT: full ROM. ABSENT: calf tenderness, clubbing, pedal edema Neurological exam: PRESENT: alert, awake, oriented to person, oriented to place , oriented to time, oriented to situation, CN II-XII grossly intact. ABSENT: motor sensory deficit Psychiatric exam: PRESENT: appropriate affect, normal mood. ABSENT: homicidal ideation, suicidal ideation Skin exam: PRESENT: dry, intact, warm. ABSENT: cyanosis, rash Results Laboratory Results: 05/21/16 04:17 05/21/16 05/21/16 04:17 04:17 WBC 14.7 H RBC 4.08 Hgb 11.0 L Hct 32.1 L MCV 79 L MCH 26.8 L MCHC 34.2 RDW 15.2 H Plt Count 264 Seg Neutrophils % 83.5 H Lymphocytes % 9.5 L Monocytes % 6.5 Eosinophils % 0.4 Basophils % 0.1 Absolute Neutrophils 12.3 H Absolute Lymphocytes 1.4 Absolute Monocytes 1.0 Absolute Eosinophils 0.1 Absolute Basophils 0.0 Magnesium 2.0 Impressions: Chest X-Ray 05/19/16 17:44 IMPRESSION: NO SIGNIFICANT RADIOGRAPHIC FINDING IN THE CHEST. Assessment & Plan - Diagnosis (1) Asthma exacerbation Is this a current diagnosis for this admission?: YesPlan: Continue IV steroids, antibiotics and inhalers or treatments. (2) Bronchitis Is this a current diagnosis for this admission?: YesPlan: Continue IV steroids, villager treatments and antibiotics. BiPAP for distress. (3) GERD (gastroesophageal reflux disease) Qualifiers: Esophagitis presence: esophagitis presence not specified Qualified Code(s): K21.9 - Gastro-esophageal reflux disease without esophagitis Is this a current diagnosis for this admission?: YesPlan: Continue PPI - Time Time Spent with patient: 25-34 minutes Medications reviewed and adjusted accordingly: Yes
[2016-05-21] MEDS: MONTELUKAST SODIUM 10 MG TABLET PO SCH (21:29)
[2016-05-21] MEDS: METHYLPREDNISOLONE INJ 125 MG/2 ML SDV IV SCH (21:29)
[2016-05-21] MEDS: FLUTICASONE NASAL SPRAY 50 MCG/SPRY 120 SPRAY/16 GM NASL SCH (21:30)
[2016-05-22] MEDS: IPRATROPIUM/ALBUTEROL 0.5-2.5 MG/3 ML AMPUL NEB SCH ×3 (00:09→08:08)
[2016-05-22] MEDS: METHYLPREDNISOLONE INJ 125 MG/2 ML SDV IV SCH ×4 (03:27→21:59)
[2016-05-22] MEDS: LANSOPRAZOLE 30 MG TAB.RAP.DR PO SCH ×2 (06:23→17:30)
[2016-05-22] MEDS: HEPARIN SOD (PORCINE) 5,000 UNIT/ML 1 ML SYRINGE SUBCUT SCH ×3 (06:24→22:11)
--- NOTE | 2016-05-22 10:53 | PDOC PROGRESS REPORT ---
Subjective Progress Note for:: 05/22/16 Subjective:: The patient was seen earlier today on rounds. The patient denies any nausea, vomiting, diarrhea, dizziness, heart palpitations, fevers, or chills. The patient states that her shortness of breath and wheezing do continue. Patient' s dyspnea is noted in conversation she is able to complete sentences however she is winded. According to the patient she has had some discomfort noted under her left breast especially with deep breath. The patient states that her symptoms have waxed and waned in intensity but overall been present since February of this year. The patient has remained afebrile. Blood pressures have been in a good range. When prompted the patient voices no other concerns at this time. Review of systems: The rest of the review of systems is negative. Physical Exam Vital Signs: Temp Pulse Resp BP Pulse Ox 98.0 F 101 H 16 128/70 H 93 05/22/16 07:36 05/22/16 08:08 05/22/16 08:08 05/22/16 07:36 05/22/16 08:08 Intake & Output 05/20/16 05/21/16 05/22/16 23:59 23:59 23:59 Intake Total 915 1045 1390 Balance 915 1045 1390 Weight 104 kg 104.2 kg General appearance: PRESENT: no acute distress, cooperative, well-developed, well-nourished Head exam: PRESENT: atraumatic, normocephalic Eye exam: PRESENT: conjunctiva pink, EOMI, PERRLA. ABSENT: scleral icterus Ear exam: PRESENT: normal external ear exam Mouth exam: PRESENT: moist, tongue midline Neck exam: ABSENT: carotid bruit, JVD, lymphadenopathy, thyromegaly Respiratory exam: PRESENT: decreased breath sounds, symmetrical, tachypnea, wheezes. ABSENT: rales, rhonchi, unlabored Cardiovascular exam: PRESENT: RRR. ABSENT: diastolic murmur, rubs, systolic murmur Pulses: PRESENT: normal dorsalis pedis pul Vascular exam: PRESENT: normal capillary refill GI/Abdominal exam: PRESENT: normal bowel sounds, soft. ABSENT: distended, guarding, mass, organolmegaly, rebound, tenderness Rectal exam: PRESENT: deferred Extremities exam: PRESENT: full ROM. ABSENT: calf tenderness, clubbing, pedal edema Neurological exam: PRESENT: alert, awake, oriented to person, oriented to place , oriented to time, oriented to situation, CN II-XII grossly intact. ABSENT: motor sensory deficit Psychiatric exam: PRESENT: appropriate affect, normal mood. ABSENT: homicidal ideation, suicidal ideation Skin exam: PRESENT: dry, intact, warm. ABSENT: cyanosis, rash Results Laboratory Results: 05/21/16 04:17 Impressions: Chest X-Ray 05/19/16 17:44 IMPRESSION: NO SIGNIFICANT RADIOGRAPHIC FINDING IN THE CHEST. Assessment & Plan - Diagnosis (1) Asthma exacerbation Is this a current diagnosis for this admission?: YesPlan: The patient symptoms overall have improved but have persisted since February. Will start long-acting Advair continue with Singulair as well as 1 receptor cary and H2 receptor blockers. Will also add Flonase every 12. Continue steroids. (2) Bronchitis Is this a current diagnosis for this admission?: YesPlan: Will continue Levaquin (3) Acute hypoxemic respiratory failure Is this a current diagnosis for this admission?: YesPlan: The patient has had multiple rounds of steroids since February. Given the patient's elevation in d-dimer will obtain CTA. (4) GERD (gastroesophageal reflux disease) Qualifiers: Esophagitis presence: esophagitis presence not specified Qualified Code(s): K21.9 - Gastro-esophageal reflux disease without esophagitis Is this a current diagnosis for this admission?: YesPlan: Will alternate PPI and H2 receptor cary (5) Morbid obesity Qualifiers: Obesity type: due to excess calories Qualified Code(s): E66.01 - Morbid (severe) obesity due to excess calories Is this a current diagnosis for this admission?: Yes (6) DVT prophylaxis Is this a current diagnosis for this admission?: YesPlan: Continue subcutaneous heparin - Time Time Spent with patient: 25-34 minutes Medications reviewed and adjusted accordingly: Yes Anticipated discharge: Home Within: within 24 hours, within 48 hours
[2016-05-22] MEDS: LEVOTHYROXINE SODIUM 0.025 MG TABLET PO SCH (10:57)
[2016-05-22] MEDS: GUAIFENESIN 600 MG TABLET.SA PO SCH ×2 (10:57→22:00)
[2016-05-22] MEDS: LORATADINE 10 MG TABLET PO SCH (10:57)
[2016-05-22] MEDS ORDERED: FLUTICASONE NASAL SPRAY 50 MCG/SPRY 120 SPRAY/16 GM NASL ONE (11:00)
[2016-05-22] MEDS ORDERED: FAMOTIDINE 20 MG TABLET PO ONE (11:00)
[2016-05-22] MEDS: LEVOFLOXACIN 750 MG/D5W RTU 150 ML IV SCH (11:02)
[2016-05-22] MEDS ORDERED: FLUTICASONE/SALMETEROL DISKUS 250-50 MCG/DOSE IH ONE (11:30)
[2016-05-22] MEDS: ALBUTEROL SULFATE 0.083% NEB 2.5 MG/3 ML AMPUL NEB SCH ×2 (14:33→21:08)
[2016-05-22] MEDS: FAMOTIDINE 20 MG TABLET PO SCH (21:59)
[2016-05-22] MEDS: FLUTICASONE NASAL SPRAY 50 MCG/SPRY 120 SPRAY/16 GM NASL SCH (22:00)
[2016-05-22] MEDS: MONTELUKAST SODIUM 10 MG TABLET PO SCH (22:00)
[2016-05-22] MEDS: FLUTICASONE/SALMETEROL DISKUS 250-50 MCG/DOSE IH SCH (22:01)
[2016-05-23] MEDS: METHYLPREDNISOLONE INJ 125 MG/2 ML SDV IV SCH ×2 (03:39→09:32)
[2016-05-23] MEDS: HEPARIN SOD (PORCINE) 5,000 UNIT/ML 1 ML SYRINGE SUBCUT SCH (05:22)
[2016-05-23] MEDS: LANSOPRAZOLE 30 MG TAB.RAP.DR PO SCH (06:31)
[2016-05-23] MEDS: ALBUTEROL SULFATE 0.083% NEB 2.5 MG/3 ML AMPUL NEB SCH ×2 (08:52→14:03)
[2016-05-23] MEDS: LEVOTHYROXINE SODIUM 0.025 MG TABLET PO SCH (09:32)
[2016-05-23] MEDS: FLUTICASONE/SALMETEROL DISKUS 250-50 MCG/DOSE IH SCH (09:33)
[2016-05-23] MEDS: FAMOTIDINE 20 MG TABLET PO SCH (09:33)
[2016-05-23] MEDS: GUAIFENESIN 600 MG TABLET.SA PO SCH (09:33)
[2016-05-23] MEDS: LORATADINE 10 MG TABLET PO SCH (09:33)
[2016-05-23] MEDS: LEVOFLOXACIN 750 MG/D5W RTU 150 ML IV SCH (09:34)
[2016-05-23] MEDS: FLUTICASONE NASAL SPRAY 50 MCG/SPRY 120 SPRAY/16 GM NASL SCH (09:34)
--- NOTE | 2016-05-23 10:55 | PDOC DISCHARGE SUMMARY ---
General - Admit/Disc Date/PCP Admission Date/Primary Care Provider: 05/20/16 16:51 Outpatient containers sales representative: Dr. Us Discharge Date: 05/23/16 - Discharge Diagnosis (1) Asthma exacerbation Is this a current diagnosis for this admission?: Yes (2) Bronchitis Is this a current diagnosis for this admission?: Yes (3) Acute hypoxemic respiratory failure Is this a current diagnosis for this admission?: Yes (4) GERD (gastroesophageal reflux disease) Is this a current diagnosis for this admission?: Yes (5) Morbid obesity Is this a current diagnosis for this admission?: Yes (6) DVT prophylaxis Is this a current diagnosis for this admission?: Yes - Additional Information Resuscitation Status: Full Code Discharge Diet: Regular Discharge Activity: Activity As Tolerated Home Medications: Albuterol Sulfate [Ventolin Hfa] 2 puff IH TIDP PRN 05/20/16 Atrovent 0.03% 2 spray NASL BID PRN 05/20/16 Fluticasone Propionate [Flonase Nasal Almond 50 Mcg/Almond 16 gm] 2 spray NASL DAILY 05/20/16 Levothyroxine Sodium [Synthroid] 25 mcg PO QAM 05/20/16 Lisinopril/Hydrochlorothiazide [Zestoretic 20-12.5 mg Tablet] 1 tab PO DAILY Montelukast Sodium [Singulair 10 mg Tablet] 10 mg PO QHS 05/20/16 Phentermine HCl [Adipex-P] 37.5 mg PO DAILY 05/20/16 Fluticasone/Salmeterol [Advair 250-50 Diskus 14 Dose/Diskus] 1 inh IH Q12 #1 inhaler 05/23/16 Ipratropium/Albuterol Sulfate [Duoneb 3 ml Ampul] 3 ml NEB QIDP PRN #0 Levofloxacin [Levaquin 750 mg Tablet] 750 mg PO DAILY #5 tablet 05/23/16 Prednisone [Deltasone 10 mg Tablet] 10 mg PO DAILY #21 tablet 05/23/16 History of Present Illness Patient complains of: Shortness of breath and wheezing History of Present Illness: LC VASQUEZ is a 30 year old female with a past medical history of lifelong asthma, morbid obesity, hypertension and recent bronchitis lasting approximately 3 months and recurrent asthma exacerbations who discontinued a prednisone taper approximate 48 hours ago and has had a nonproductive cough, wheeze and shortness of breath prompting him to seek evaluation emergency room where she's found to be in a tripod position and severe respiratory distress requiring BiPAP referred to the hospitalist for admission. Patient is unaware of underlying GERD, sinus allergies, sore throat or infectious contacts. Hospital Course Hospital Course: The patient was admitted to [facility]. The patient was placed on scheduled nebs as well as PRN nebs, steroids, and supplemental oxygen. The patient's oxygen, steroids, and nebs were titrated and weaned. The patient underwent CTA of the chest which was unremarkable. The patient had been started on Levaquin given her recurrent bronchitis. The patient is back to baseline and able to complete sentences. The patient was added a long-term asthma control medication. Recommendations have been made to follow-up with type photography supervisor given the patient's significant wheezing and seasonal symptoms. Physical Exam Vital Signs: Temp Pulse Resp BP Pulse Ox 98.1 F 99 20 138/75 H 96 05/23/16 07:18 05/23/16 07:18 05/23/16 07:18 05/23/16 07:18 05/23/16 07:18 Intake & Output 05/21/16 05/22/16 05/23/16 23:59 23:59 23:59 Intake Total 1045 3146 250 Balance 1045 3146 250 Weight 104 kg 104.2 kg General appearance: PRESENT: no acute distress, cooperative, well-developed, well-nourished Head exam: PRESENT: atraumatic, normocephalic Eye exam: PRESENT: conjunctiva pink, EOMI, PERRLA. ABSENT: scleral icterus Ear exam: PRESENT: normal external ear exam Mouth exam: PRESENT: moist, tongue midline Neck exam: ABSENT: carotid bruit, JVD, lymphadenopathy, thyromegaly Respiratory exam: PRESENT: decreased breath sounds, symmetrical, faint expiratory wheezes overall much improved in comparison. ABSENT: rales, rhonchi , unlabored Cardiovascular exam: PRESENT: RRR. ABSENT: diastolic murmur, rubs, systolic murmur Pulses: PRESENT: normal dorsalis pedis pul Vascular exam: PRESENT: normal capillary refill GI/Abdominal exam: PRESENT: normal bowel sounds, soft. ABSENT: distended, guarding, mass, organolmegaly, rebound, tenderness Rectal exam: PRESENT: deferred Extremities exam: PRESENT: full ROM. ABSENT: calf tenderness, clubbing, pedal edema Neurological exam: PRESENT: alert, awake, oriented to person, oriented to place , oriented to time, oriented to situation, CN II-XII grossly intact. ABSENT: motor sensory deficit Psychiatric exam: PRESENT: appropriate affect, normal mood. ABSENT: homicidal ideation, suicidal ideation Skin exam: PRESENT: dry, intact, warm. ABSENT: cyanosis, rash Results Laboratory Results: Labs- Last Values WBC 14.7 10^3/uL (4.0-10.5) H 05/21/16 04:17 RBC 4.08 10^6/uL (3.72-5.28) 05/21/16 04:17 Hgb 11.0 g/dL (12.0-15.5) L 05/21/16 04:17 Hct 32.1 % (36.0-47.0) L 05/21/16 04:17 MCV 79 fl (80-97) L 05/21/16 04:17 MCH 26.8 pg (27.0-33.4) L 05/21/16 04:17 MCHC 34.2 g/dL (32.0-36.0) 05/21/16 04:17 RDW 15.2 % (11.5-14.0) H 05/21/16 04:17 Plt Count 264 10^3/uL (150-450) 05/21/16 04:17 Seg Neutrophils % 83.5 % (42-78) H 05/21/16 04:17 Lymphocytes % 9.5 % (13-45) L 05/21/16 04:17 Monocytes % 6.5 % (3-13) 05/21/16 04:17 Eosinophils % 0.4 % (0-6) 05/21/16 04:17 Basophils % 0.1 % (0-2) 05/21/16 04:17 Absolute Neutrophils 12.3 10^3/uL (1.7-8.2) H 05/21/16 04:17 Absolute Lymphocytes 1.4 10^3/uL (0.5-4.7) 05/21/16 04:17 Absolute Monocytes 1.0 10^3/uL (0.1-1.4) 05/21/16 04:17 Absolute Eosinophils 0.1 10^3/uL (0.0-0.6) 05/21/16 04:17 Absolute Basophils 0.0 10^3/uL (0.0-0.2) 05/21/16 04:17 D-Dimer 0.56 ug/mL (0.00-0.50) H 05/19/16 19:30 VBG pH 7.35 (7.30-7.42) 05/19/16 23:36 VBG pCO2 40.1 mmHg (35-63) 05/19/16 23:36 VBG HCO3 21.7 mmol/L (20-32) 05/19/16 23:36 VBG Base Excess -3.6 mmol/L 05/19/16 23:36 Sodium 136.0 mmol/L (137-145) L 05/20/16 06:16 Potassium 4.2 mmol/L (3.6-5.0) 05/20/16 06:16 Chloride 105 mmol/L (98-107) 05/20/16 06:16 Carbon Dioxide 20 mmol/L (22-30) L 05/20/16 06:16 Anion Gap 11 (5-19) 05/20/16 06:16 BUN 5 mg/dL (7-20) L 05/20/16 06:16 Creatinine 0.43 mg/dL (0.52-1.25) L 05/20/16 06:16 Est GFR ( Amer) > 60 (>60) 05/20/16 06:16 Est GFR (Non-Af Amer) > 60 (>60) 05/20/16 06:16 Glucose 151 mg/dL (75-110) H 05/20/16 06:16 Calcium 9.6 mg/dL (8.4-10.2) 05/20/16 06:16 Magnesium 2.0 mg/dL (1.6-2.3) 05/21/16 04:17 Total Bilirubin 0.4 mg/dL (0.2-1.3) 05/19/16 19:30 Direct Bilirubin 0.1 mg/dL (0.0-0.4) 05/19/16 19:30 Indirect Bilirubin Not Reportable 05/19/16 19:30 Neonat Total Bilirubin Not Reportable 05/19/16 19:30 AST 24 U/L (14-36) 05/19/16 19:30 ALT 35 U/L (9-52) 05/19/16 19:30 Alkaline Phosphatase 67 U/L (38-126) 05/19/16 19:30 Creatine Kinase 91 U/L (30-135) 05/19/16 19:30 CK-MB (CK-2) 0.57 ng/mL (<4.55) 05/19/16 19:30 Troponin I < 0.012 ng/mL 05/19/16 19:30 NT-Pro-B Natriuret Pep 15 pg/mL (<125) 05/19/16 19:30 Total Protein 6.7 g/dL (6.3-8.2) 05/19/16 19:30 Albumin 3.9 g/dL (3.5-5.0) 05/19/16 19:30 Impressions: Chest X-Ray 05/19/16 17:44 IMPRESSION: NO SIGNIFICANT RADIOGRAPHIC FINDING IN THE CHEST. Chest/Abdomen CTA 05/22/16 00:00 IMPRESSION: NORMAL CTA OF THE CHEST. NO PULMONARY EMBOLI. Qualifiers PATEINT BEING DISCHARGED WITH ANY OF THE FOLLOWING DIAGNOSIS?: No Plan Discharge Plan: Patient is to follow with primary care as needed. The patient is to follow with Dr. Us within 1-2 weeks for hospital follow- up. The patient is to be referred to Dr. Holliday, type photography supervisor in [facility]. Time Spent: Less than 30 Minutes
[2016-05-23 11:04] VITALS: BP 144/78
== END 2016-05-23 11:30 | disposition home or self-care (01) | DRG 202 ==
LOC: ER 17:22 → EH 21:34 → INTOOBSV 21:34 → EH 22:52 → UNDOADMIN 22:52 → 3W 05-20 02:50 → OBSVTOIN 05-20 16:51
PROVIDERS: ADMIT Internal Medicine; ATTEND Internal Medicine
DX: J45.901 Unspecified asthma with (acute) exacerbation (principal); J96.01 Acute respiratory failure with hypoxia; I10 Essential (primary) hypertension; K21.9 Gastro-esophageal reflux disease without esophagitis; E66.01 Morbid (severe) obesity due to excess calories; Z68.37 Body mass index [BMI] 37.0-37.9, adult; Z79.51 Long term (current) use of inhaled steroids; Z79.52 Long term (current) use of systemic steroids; Z79.899 Other long term (current) drug therapy
CPT/HCPCS: 36415; 71020; 71275; 80048; 80053; 82550; 82553; 82803; 83735; 83880; 84484; 85025; 85379; 87070; 87205; 93005; 93010; 94640; 94660; 96365; 96375; 99291; G0378; J1100; J1956; J2930; J3475; J3490; J7512; J7620; S0028

== ENCOUNTER 2016-09-16 18:15 | Outpatient (CLI) | payer OTHER, MEDICAID ==
[2016-09-16 19:13] LABS: ABSOLUTE EOSINOPHILS # (AUTO) 0.3 10^3/uL (0.0-0.6); ABSOLUTE LYMPHOCYTES (AUTO) 2.1 10^3/uL (0.5-4.7); ABSOLUTE MONOCYTES (AUTO) 0.9 10^3/uL (0.1-1.4); ABSOLUTE NEUT (AUTO) 6.3 10^3/uL (1.7-8.2); BASOPHILS % (AUTO) 0.3 % (0-2); EOSINOPHILS % (AUTO) 2.8 % (0-6); HEMATOCRIT 32.2 % (36.0-47.0); HEMOGLOBIN 10.8 g/dL (12.0-15.5); HGB HCT DIFFERENCE 0.2; LYMPHOCYTES % (AUTO) 22.1 % (13-45); MEAN CORPUSCULAR HEMOGLOBIN 25.8 pg (27.0-33.4); MEAN CORPUSCULAR HGB CONC 33.4 g/dL (32.0-36.0); MEAN CORPUSCULAR VOLUME 77 fl (80-97); MONOCYTES % (AUTO) 9.1 % (3-13); RED BLOOD COUNT 4.18 10^6/uL (3.72-5.28); RED CELL DISTRIBUTION WIDTH 17.1 % (11.5-14.0); SEGMENTED NEUTROPHILS % (AUTO) 65.7 % (42-78); WHITE BLOOD COUNT 9.5 10^3/uL (4.0-10.5)
[2016-09-16 19:21] LABS: APPEARANCE,URINE SLIGHTLY-CLOUDY; BILIRUBIN,URINE NEGATIVE (NEGATIVE); GLUCOSE, URINE NEGATIVE (NEGATIVE); KETONES,URINE NEGATIVE (NEGATIVE); LEUKOCYTE ESTERASE,URINE TRACE (NEGATIVE); NITRITE,URINE NEGATIVE (NEGATIVE); PROTEIN,URINE NEGATIVE (NEGATIVE); URINE SPECIFIC GRAVITY 1.013; UROBILINOGEN,URINE NEGATIVE mg/dL (<2.0)
[2016-09-16 19:34] LABS: ALANINE AMINOTRANSFERASE 30 U/L (9-52); ALBUMIN 3.3 g/dL (3.5-5.0); ALKALINE PHOSPHATASE 127 U/L (38-126); ANION GAP 10 (5-19); ASPARTATE AMINO TRANSFERASE 21 U/L (14-36); BILIRUBIN,DIRECT 0.3 mg/dL (0.0-0.4); BILIRUBIN,TOTAL 0.4 mg/dL (0.2-1.3); BLOOD UREA NITROGEN 6 mg/dL (7-20); CALCIUM 9.1 mg/dL (8.4-10.2); CARBON DIOXIDE 24 mmol/L (22-30); CHLORIDE 104 mmol/L (98-107); GLUCOSE 80 mg/dL (75-110); LDH 425 U/L (313-618); POTASSIUM 3.7 mmol/L (3.6-5.0); SODIUM 137.6 mmol/L (137-145); TOTAL PROTEIN 6.5 g/dL (6.3-8.2); URIC ACID 3.9 mg/dL (2.5-6.2)
[2016-09-16 19:35] LABS: URINE CREATININE 156.3 mg/dL (16-327); URINE PROTEIN 16.4 mg/dL (<12)
[2016-09-16 19:47] LABS: URINE BARBITURATES SCREEN NEGATIVE; URINE METHADONE SCREEN NEGATIVE; URINE OPIATES LOW NEGATIVE; URINE PHENCYCLIDINE SCREEN NEGATIVE
[2016-09-16] MEDS ORDERED: BUTALB/ACETAMINOPHEN/CAFFEINE 1 TAB EACH PO ONE (20:11)
[2016-09-16] MEDS ORDERED: BUTALB/ACETAMINOPHEN/CAFFEINE 1 TAB EACH ONE (20:18)
[2016-09-16] MEDS ORDERED: FAMOTIDINE 20 MG TABLET PO ONE (21:15)
[2016-09-16] MEDS ORDERED: FAMOTIDINE 20 MG TABLET ONE (21:32)
== END 2016-09-16 21:40 | disposition home or self-care (01) ==
LOC: LC 18:15
PROVIDERS: ATTEND Obstetrics & Gynecology
PROC: 4A1HXCZ Monitoring of Products of Conception, Cardiac Rate, External Approach (ICD-10-PCS; principal; 2016-09-16)
DX: O14.93 Unspecified pre-eclampsia, third trimester (principal); Z3A.36 36 weeks gestation of pregnancy
CPT/HCPCS: 59025; 36415; 83615; 84156; 84550; 82570; 85025; 80053; 81001; 80307; J3490

== ENCOUNTER 2016-09-22 11:49 | Outpatient (CLI) | payer OTHER, MEDICAID ==
--- NOTE | 2016-09-22 12:06 | Non Stress Test Report ---
Non Stress Test Datetime Report Generated by CPN: 09/22/2016 12:06 DEMOGRAPHIC EGA NST: 36.2 INDICATION Indication for Study: Ordered by Provider; Other Indication for Study (NST) Other: LC MONITORING Monitor Explained: Monitor Explained; Test Explained; Patient Verbalized Understanding Time on Monitor: 09/16/2016 18:47 Time off Monitor: 09/16/2016 21:32 NST Duration: 165 NST INTERVENTIONS NST Interventions: PO Hydration; Reposition Patient Physician Notified NST: Dr Darin BABY A: [id number] BABY A Movement : Present Contraction Frequency : none Accelerations : 15X15 Decelerations : None Variability : Moderate 6-25bpm NST Review: Meets Criteria for Reactive NST NST Review and Verified By : , RN NST Results: Reactive NST REPORT Report Trigger: Send Report
[2016-09-22 12:52] LABS: APPEARANCE,URINE SLIGHTLY-CLOUDY; BILIRUBIN,URINE NEGATIVE (NEGATIVE); GLUCOSE, URINE 50 mg/dL (NEGATIVE); KETONES,URINE NEGATIVE (NEGATIVE); LEUKOCYTE ESTERASE,URINE LARGE (NEGATIVE); NITRITE,URINE NEGATIVE (NEGATIVE); PROTEIN,URINE NEGATIVE (NEGATIVE); URINE SPECIFIC GRAVITY 1.009; UROBILINOGEN,URINE NEGATIVE mg/dL (<2.0)
[2016-09-22 12:53] LABS: ABSOLUTE EOSINOPHILS # (AUTO) 0.2 10^3/uL (0.0-0.6); ABSOLUTE LYMPHOCYTES (AUTO) 1.4 10^3/uL (0.5-4.7); ABSOLUTE MONOCYTES (AUTO) 0.7 10^3/uL (0.1-1.4); ABSOLUTE NEUT (AUTO) 4.3 10^3/uL (1.7-8.2); BASOPHILS % (AUTO) 0.6 % (0-2); EOSINOPHILS % (AUTO) 2.3 % (0-6); HEMATOCRIT 31.8 % (36.0-47.0); HEMOGLOBIN 10.5 g/dL (12.0-15.5); HGB HCT DIFFERENCE -0.3; LYMPHOCYTES % (AUTO) 21.3 % (13-45); MEAN CORPUSCULAR HEMOGLOBIN 25.6 pg (27.0-33.4); MEAN CORPUSCULAR VOLUME 78 fl (80-97); MONOCYTES % (AUTO) 11.2 % (3-13); RED CELL DISTRIBUTION WIDTH 17.1 % (11.5-14.0); SEGMENTED NEUTROPHILS % (AUTO) 64.6 % (42-78); WHITE BLOOD COUNT 6.7 10^3/uL (4.0-10.5)
[2016-09-22 13:08] LABS: ALANINE AMINOTRANSFERASE 22 U/L (9-52); ALBUMIN 3.2 g/dL (3.5-5.0); ALKALINE PHOSPHATASE 126 U/L (38-126); ANION GAP 8 (5-19); ASPARTATE AMINO TRANSFERASE 17 U/L (14-36); BILIRUBIN,DIRECT 0.3 mg/dL (0.0-0.4); BILIRUBIN,TOTAL 0.4 mg/dL (0.2-1.3); BLOOD UREA NITROGEN 5 mg/dL (7-20); CARBON DIOXIDE 24 mmol/L (22-30); CHLORIDE 105 mmol/L (98-107); CREATININE RESULT 0.57 mg/dL (0.52-1.25); GLUCOSE 73 mg/dL (75-110); LDH 412 U/L (313-618); POTASSIUM 3.8 mmol/L (3.6-5.0); SODIUM 136.5 mmol/L (137-145); TOTAL PROTEIN 6.3 g/dL (6.3-8.2); URIC ACID 3.4 mg/dL (2.5-6.2)
[2016-09-22 13:14] LABS: URINE METHADONE SCREEN NEGATIVE; URINE OPIATES LOW NEGATIVE; URINE PHENCYCLIDINE SCREEN NEGATIVE
[2016-09-22 13:28] LABS: URINE BARBITURATES SCREEN UNCONFIRMED POSITIVE
--- NOTE | 2016-09-22 13:44 | Non Stress Test Report ---
Non Stress Test Datetime Report Generated by CPN: 09/22/2016 13:44 DEMOGRAPHIC EGA NST: 37.1 INDICATION Indication for Study: Ordered by Provider MONITORING Monitor Explained: Monitor Explained; Test Explained; Patient Verbalized Understanding Time on Monitor: 09/22/2016 12:15 Time off Monitor: 09/22/2016 12:42 NST Duration: 27 NST INTERVENTIONS NST Interventions: PO Hydration; Reposition Patient Physician Notified NST: Dr Neilsen BABY A Movement : Present Contraction Frequency : none FHR Baseline : 145 Accelerations : 15X15 Decelerations : None Variability : Moderate 6-25bpm NST Review: Meets Criteria for Reactive NST NST Review and Verified By : ANKUSH Johns Results: Reactive NST REPORT Report Trigger: Send Report
== END 2016-09-22 13:38 | disposition home or self-care (01) ==
LOC: LC 11:49
PROVIDERS: ATTEND Specialist
PROC: 4A1HXCZ Monitoring of Products of Conception, Cardiac Rate, External Approach (ICD-10-PCS; principal; 2016-09-22)
DX: O16.3 Unspecified maternal hypertension, third trimester (principal); Z3A.37 37 weeks gestation of pregnancy
CPT/HCPCS: 36415; 59025; 80053; 80307; 81005; 83615; 84550; 85025; 86592; 86850; 86900; 86901

== ENCOUNTER 2016-09-23 09:37 | Outpatient (CLI) | payer OTHER, MEDICAID ==
--- NOTE | 2016-09-23 11:20 | Non Stress Test Report ---
Non Stress Test Datetime Report Generated by CPN: 09/23/2016 11:20 DEMOGRAPHIC EGA NST: 37.2 INDICATION Indication for Study: Chronic Hypertension MONITORING Monitor Explained: Monitor Explained; Test Explained; Patient Verbalized Understanding Time on Monitor: 09/23/2016 09:54 Time off Monitor: 09/23/2016 11:14 NST Duration: 80 NST INTERVENTIONS NST Interventions: PO Hydration; Reposition Patient Physician Notified NST: A. Emmel CNM BABY A: [id number] BABY A Movement : Present Contraction Frequency : none FHR Baseline : 145 Accelerations : 15X15 Decelerations : None Variability : Moderate 6-25bpm NST Review: Meets Criteria for Reactive NST NST Review and Verified By : Zeinab camp RNC NST Results: Reactive NST REPORT Report Trigger: Send Report
== END 2016-09-23 11:16 | disposition home or self-care (01) ==
LOC: LC 09:37
PROVIDERS: ATTEND Obstetrics & Gynecology
PROC: 4A1HXCZ Monitoring of Products of Conception, Cardiac Rate, External Approach (ICD-10-PCS; principal; 2016-09-23)
DX: O10.913 Unspecified pre-existing hypertension complicating pregnancy, third trimester (principal); Z3A.37 37 weeks gestation of pregnancy
CPT/HCPCS: 59025

== ENCOUNTER 2016-09-27 09:43 | Outpatient (CLI) | payer OTHER, MEDICAID ==
[2016-09-27 10:17] LABS: APPEARANCE,URINE SLIGHTLY-CLOUDY; BILIRUBIN,URINE NEGATIVE (NEGATIVE); GLUCOSE, URINE NEGATIVE (NEGATIVE); KETONES,URINE NEGATIVE (NEGATIVE); LEUKOCYTE ESTERASE,URINE LARGE (NEGATIVE); NITRITE,URINE NEGATIVE (NEGATIVE); PROTEIN,URINE NEGATIVE (NEGATIVE); URINE SPECIFIC GRAVITY 1.002; UROBILINOGEN,URINE NEGATIVE mg/dL (<2.0)
[2016-09-27 10:23] LABS: ABSOLUTE EOSINOPHILS # (AUTO) 0.1 10^3/uL (0.0-0.6); ABSOLUTE LYMPHOCYTES (AUTO) 1.3 10^3/uL (0.5-4.7); ABSOLUTE MONOCYTES (AUTO) 0.6 10^3/uL (0.1-1.4); ABSOLUTE NEUT (AUTO) 4.2 10^3/uL (1.7-8.2); BASOPHILS % (AUTO) 0.3 % (0-2); HEMATOCRIT 32.1 % (36.0-47.0); HEMOGLOBIN 10.4 g/dL (12.0-15.5); HGB HCT DIFFERENCE -0.9; LYMPHOCYTES % (AUTO) 21.4 % (13-45); MEAN CORPUSCULAR HEMOGLOBIN 25.1 pg (27.0-33.4); MEAN CORPUSCULAR HGB CONC 32.3 g/dL (32.0-36.0); MEAN CORPUSCULAR VOLUME 78 fl (80-97); MONOCYTES % (AUTO) 9.7 % (3-13); RED BLOOD COUNT 4.12 10^6/uL (3.72-5.28); RED CELL DISTRIBUTION WIDTH 17.1 % (11.5-14.0); SEGMENTED NEUTROPHILS % (AUTO) 66.6 % (42-78); WHITE BLOOD COUNT 6.3 10^3/uL (4.0-10.5)
[2016-09-27 10:35] LABS: URINE CREATININE 26.9 mg/dL (16-327)
[2016-09-27 10:38] LABS: ALANINE AMINOTRANSFERASE 25 U/L (9-52); ALBUMIN 3.1 g/dL (3.5-5.0); ALKALINE PHOSPHATASE 131 U/L (38-126); ANION GAP 6 (5-19); ASPARTATE AMINO TRANSFERASE 17 U/L (14-36); BILIRUBIN,DIRECT 0.3 mg/dL (0.0-0.4); BILIRUBIN,TOTAL 0.3 mg/dL (0.2-1.3); BLOOD UREA NITROGEN 4 mg/dL (7-20); CALCIUM 8.7 mg/dL (8.4-10.2); CARBON DIOXIDE 25 mmol/L (22-30); CHLORIDE 106 mmol/L (98-107); CREATININE RESULT 0.53 mg/dL (0.52-1.25); GLUCOSE 87 mg/dL (75-110); LDH 396 U/L (313-618); POTASSIUM 3.8 mmol/L (3.6-5.0); SODIUM 136.6 mmol/L (137-145); TOTAL PROTEIN 6.1 g/dL (6.3-8.2); URIC ACID 3.5 mg/dL (2.5-6.2)
[2016-09-27 10:52] LABS: URINE BARBITURATES SCREEN NEGATIVE; URINE METHADONE SCREEN NEGATIVE; URINE OPIATES LOW NEGATIVE; URINE PHENCYCLIDINE SCREEN NEGATIVE
--- NOTE | 2016-09-27 11:55 | Non Stress Test Report ---
Non Stress Test Datetime Report Generated by CPN: 09/27/2016 11:55 DEMOGRAPHIC EGA NST: 37.6 INDICATION Indication for Study: Ordered by Provider Indication for Study (NST) Other: LC - PIH MONITORING Monitor Explained: Monitor Explained; Test Explained; Patient Verbalized Understanding Time on Monitor: 09/27/2016 09:59 Time off Monitor: 09/27/2016 11:48 NST Duration: 109 NST INTERVENTIONS NST Interventions: PO Hydration; Reposition Patient Physician Notified NST: Dr Neilsen BABY A: [id number] BABY A Movement : Present Contraction Frequency : none FHR Baseline : 145 Accelerations : 15X15 Variability : Moderate 6-25bpm NST Review: Meets Criteria for Reactive NST NST Review and Verified By : Sherrell Shelton RN NST Results: Reactive NST COMMENTS NST Comments: Dr Neilsen reviewed strip NST REPORT Report Trigger: Send Report
== END 2016-09-27 11:56 | disposition home or self-care (01) ==
LOC: LC 09:43 → 2S 09-29 06:27 → UNDOADMIN 09-29 06:27
PROVIDERS: ATTEND Specialist
DX: O13.3 Gestational [pregnancy-induced] hypertension without significant proteinuria, third trimester (principal); Z3A.37 37 weeks gestation of pregnancy
CPT/HCPCS: 36415; 59025; 80053; 80307; 81001; 82570; 83615; 84156; 84550; 85025

== ENCOUNTER 2016-09-29 06:33 | Inpatient (IN) | payer OTHER, MEDICAID ==
[~2016-09-29 06:33] MED LIST: CEFAZOLIN 2 GM/D5W RTU 2 GM/50 ML RTUPB IV PRN; LACTATED RINGERS 1000 ML IV PRN; LIDOCAINE 0.5% INJ-PF (5 MG/ML) 50 ML SDV SUBCUT PRN
[2016-09-29] MEDS ORDERED: OXYTOCIN 10 UNIT/ML VIAL ONE (09:12)
[2016-09-29] MEDS ORDERED: PROPOFOL INJ 200 MG/20 ML VIAL IV ONE (09:12)
[2016-09-29] MEDS ORDERED: FENTANYL CITRATE INJ/PF 100 MCG/2 ML AMPUL ONE ×2 (09:12→11:16)
[2016-09-29] MEDS ORDERED: MIDAZOLAM 2 MG/2 ML INJ ONE (09:13)
[2016-09-29] MEDS ORDERED: ACETAMINOPHEN 0 ML IV ONE (09:13)
[2016-09-29] MEDS ORDERED: EPHEDRINE SULFATE INJ 50 MG/1 ML AMPULE ONE (09:13)
[2016-09-29] MEDS ORDERED: FAMOTIDINE INJ/PF 20 MG/2 ML SDV IV ONE (09:13)
[2016-09-29] MEDS ORDERED: FENTANYL CITRATE INJ/PF 100 MCG/2 ML AMPUL IV PRN ×3 (10:19)
[2016-09-29] MEDS ORDERED: MORPHINE SULFATE 10 MG/ML INJ IV PRN ×3 (10:19→13:14)
--- NOTE | 2016-09-29 11:07 | OPERATIVE REPORT E ---
Operative Report NAME: LC VASQUEZ : 1985 AGE: 30Y DATE OF SURGERY: 09/29/2016 ROOM: 221 PREOPERATIVE DIAGNOSES: 1. IUP at 38 weeks and 1 day. 2. Previous . 3. Chronic hypertension. 4. Superimposed preeclampsia. 5. A2 diabetes. 6. Undesired fertility. POSTOPERATIVE DIAGNOSES: 1. IUP at 38 weeks and 1 day. 2. Previous . 3. Chronic hypertension. 4. Superimposed preeclampsia. 5. A2 diabetes. 6. Undesired fertility. PROCEDURE: Low-transverse hysterotomy section with [place] tubal ligation. SURGEON: KEN SEVERINO M.D. ANESTHESIA: Dr. Tan with a spinal. FINDINGS: Male fetus in cephalic presentation with Apgars of 7 and 9, weight 6 pounds 1 ounce. COMPLICATIONS: None. ESTIMATED BLOOD LOSS: 600 mL. SPECIMENS REMOVED: Placenta and the bilateral fallopian tubes. PROCEDURE IN DETAIL: The patient was taken to the operating room and prepared and draped in a supine position with a leftward tilt. A transverse skin incision was made with a scalpel following the patient's previous scar. This was carried through the underlying layer of fascia with the same scalpel. The fascia was excised and extended laterally with [place]. The fascia was then dissected from the rectus muscles sharply with the Bovie both superiorly and inferiorly. The rectus muscle was divided. The peritoneal cavity was entered bluntly. With good visualization of the bladder and the uterus, the bladder blade was inserted and the hysterotomy was performed with the scalpel and had to be extended with bandage scissors due to thickness of the lower uterine segment. The was then delivered with the help of the [place], no pop offs, brought to a pressure of 40 mmHg. The nose and mouth were suctioned with a suction bulb. The cord was clamped and cut and the was handed off to awaiting pediatricians. The cord blood was collected and the placenta was removed manually. The uterus was exteriorized and cleared of clots and debris. The hysterotomy was closed with 0 Monocryl in a running, locked fashion. A second layer of the same suture was used to imbricate to ensure hemostasis. The right fallopian tube was then grasped with a [place] and the mesosalpinx was divided. A good 3-cm section of the fallopian tube was then tied off with 2 pieces of 2-0 chromic and the intermediate section was removed with Metzen[place]ums. Hemostasis was obtained with Bovie cautery. This was repeated on the left fallopian tube without difficulty. The uterus was then returned to the abdomen and the pedicles were reinspected and found to be hemostatic and intact. The rectus muscle and peritoneum were reapproximated with a mattress stitch of 2-0 chromic. The fascia was closed with 0 Vicryl. The subcutaneous layer was closed with plain catgut. The skin was closed with 4-0 Vicryl. The patient tolerated the procedure well. Sponge, lap and needle counts were correct x2, and the patient was taken to recovery in stable condition. DICTATING PHYSICIAN: KEN SEVERINO M.D. [id number] PHY#: [id number] ID: [id number] JOB#: [id number] ACCT: [id number] cc:KEN SEVERINO M.D. >
[2016-09-29] MEDS ORDERED: ACETAMINOPHEN 100 ML IV ONE (12:05)
[2016-09-29] MEDS ORDERED: ONDANSETRON HCL INJ/PF 4 MG/2 ML SDV ONE (12:10)
[2016-09-29] MEDS ORDERED: OXYTOCIN/NORMAL SALINE 20 UNIT/1,000 ML RTUINJ INJ PRN (12:25)
[2016-09-29] MEDS ORDERED: OXYCODONE-ACETAMINOPHEN 5-325 MG TABLET PO PRN ×2 (12:30)
[2016-09-29] MEDS ORDERED: DIPH/PERTUSS(ACELL)/TETANUS VAC/PF 0.5 ML SYR (>=10YO) IM PRN (12:30)
[2016-09-29] MEDS ORDERED: SIMETHICONE 80 MG TAB.CHEW PO PRN (12:30)
[2016-09-29] MEDS ORDERED: RINGERS SOLUTION,LACTATED 1,000 ML IV SCH (12:30)
[2016-09-29] MEDS ORDERED: MORPHINE SULFATE 10 MG/ML INJ IM PRN ×2 (12:30)
[2016-09-29] MEDS ORDERED: MEASLES,MUMPS&RUBELLA VACC/PF 0.5 ML VIAL SUBCUT PRN (12:30)
[2016-09-29] MEDS ORDERED: PROMETHAZINE HCL INJ 25 MG/1 ML VIAL IM PRN (12:30)
[2016-09-29] MEDS ORDERED: KETOROLAC TROMETHAMINE INJ/PF 30 MG/1 ML SDV IV ONE (13:00)
[2016-09-29] MEDS ORDERED: MORPHINE SULFATE 10 MG/ML INJ ONE (13:10)
[2016-09-29] MEDS ORDERED: PROMETHAZINE HCL INJ 25 MG/1 ML VIAL IV PRN (13:15)
[2016-09-29] MEDS ORDERED: ACETAMINOPHEN 100 ML IV SCH (14:00)
[2016-09-29] MEDS ORDERED: KETOROLAC TROMETHAMINE INJ/PF 30 MG/1 ML SDV IV SCH (14:00)
[2016-09-29] MEDS: IBUPROFEN 800 MG TABLET PO SCH ×2 (17:56→23:39)
[2016-09-29] MEDS: DOCUSATE SODIUM 100 MG CAPSULE PO SCH (17:57)
[2016-09-29] MEDS ORDERED: ACETAMINOPHEN INJ/PF 1000 MG/100 ML SDV IV ONE (20:00)
[2016-09-30 07:09] LABS: HEMATOCRIT 29.9 % (36.0-47.0); HEMOGLOBIN 9.8 g/dL (12.0-15.5); HGB HCT DIFFERENCE -0.5; MEAN CORPUSCULAR HEMOGLOBIN 25.3 pg (27.0-33.4); MEAN CORPUSCULAR HGB CONC 32.6 g/dL (32.0-36.0); MEAN CORPUSCULAR VOLUME 78 fl (80-97); RED BLOOD COUNT 3.86 10^6/uL (3.72-5.28); RED CELL DISTRIBUTION WIDTH 17.2 % (11.5-14.0); WHITE BLOOD COUNT 10.6 10^3/uL (4.0-10.5)
[2016-09-30] MEDS: DOCUSATE SODIUM 100 MG CAPSULE PO SCH ×2 (09:25→17:57)
[2016-09-30] MEDS: PRENATAL VITAMIN W-O CA NO5/FE FUMARATE/FA CAPSULE PO SCH (09:25)
--- NOTE | 2016-09-30 09:26 | PDOC PROGRESS REPORT ---
Subjective-OB Subjective: Post Delivery Day: 30 year old. Denies any needs at this time pt OOB in nursery and walking in halls, pain under control, no c/o scant bleeding, passing gas, voiding, taking diet well Physical Exam (OB) Vital Signs: Temp Pulse Resp BP Pulse Ox 97.7 F 79 18 148/93 H 100 09/30/16 04:00 09/30/16 04:00 09/30/16 04:00 09/30/16 04:00 09/30/16 04:00 Intake & Output 09/29/16 09/30/16 10/01/16 06:59 06:59 06:59 Intake Total 3190 Output Total 1970 Balance 1220 Weight 113.4 kg - PIH/Pre-Eclampsia DTR's: 2 + Clonus: Negative Headache: Absent Epigastric Pain: No Visual Changes: No - Dressing Removed: No Incision: Dressing - Lochia Lochia Amount: Scant < 10 ml Lochia Color: Rubra/Red - Abdomen Description: Soft, Round Hernia Present: No Fundal Description: Firm, Midline Fundal Height: u/u - u/2 Objective-Diagnostic Laboratory: 09/30/16 06:49 09/30/16 06:49 WBC 10.6 H RBC 3.86 Hgb 9.8 L Hct 29.9 L MCV 78 L MCH 25.3 L MCHC 32.6 RDW 17.2 H Plt Count 322 Assessment and Plan(PN) - Assessment and Plan (1) Delivery by section of full-term Is this a current diagnosis for this admission?: Yes (2) Anemia Qualifiers: Anemia type: iron deficiency Is this a current diagnosis for this admission?: Yes (3) Morbid obesity Is this a current diagnosis for this admission?: Yes - Time Spent with Patient Time with patient: Less than 15 minutes Medications reviewed and adjusted accordingly: Yes - Disposition Anticipated Discharge: Home Within: within 24 hours
[2016-09-30] MEDS: IBUPROFEN 800 MG TABLET PO SCH ×3 (10:12→17:56)
[2016-10-01] MEDS: IBUPROFEN 800 MG TABLET PO SCH ×4 (04:04→17:16)
[2016-10-01] MEDS ORDERED: NIFEDIPINE 30 MG TAB.ER.24 PO ONE (09:45)
[2016-10-01 10:14] LABS: HEMATOCRIT 28.7 % (36.0-47.0); HEMOGLOBIN 9.4 g/dL (12.0-15.5); HGB HCT DIFFERENCE -0.5; MEAN CORPUSCULAR HEMOGLOBIN 25.1 pg (27.0-33.4); MEAN CORPUSCULAR HGB CONC 32.7 g/dL (32.0-36.0); MEAN CORPUSCULAR VOLUME 77 fl (80-97); RED BLOOD COUNT 3.73 10^6/uL (3.72-5.28); WHITE BLOOD COUNT 10.9 10^3/uL (4.0-10.5)
[2016-10-01] MEDS: DOCUSATE SODIUM 100 MG CAPSULE PO SCH ×2 (10:22→17:16)
[2016-10-01] MEDS: PRENATAL VITAMIN W-O CA NO5/FE FUMARATE/FA CAPSULE PO SCH (10:22)
[2016-10-01 10:37] LABS: ALANINE AMINOTRANSFERASE 23 U/L (9-52); ALKALINE PHOSPHATASE 104 U/L (38-126); ANION GAP 8 (5-19); ASPARTATE AMINO TRANSFERASE 23 U/L (14-36); BILIRUBIN,DIRECT 0.3 mg/dL (0.0-0.4); BILIRUBIN,TOTAL 0.4 mg/dL (0.2-1.3); BLOOD UREA NITROGEN 5 mg/dL (7-20); CALCIUM 8.5 mg/dL (8.4-10.2); CARBON DIOXIDE 24 mmol/L (22-30); CHLORIDE 106 mmol/L (98-107); CREATININE RESULT 0.67 mg/dL (0.52-1.25); GLUCOSE 88 mg/dL (75-110); LDH 468 U/L (313-618); POTASSIUM 3.8 mmol/L (3.6-5.0); SODIUM 137.5 mmol/L (137-145); TOTAL PROTEIN 5.8 g/dL (6.3-8.2); URIC ACID 3.8 mg/dL (2.5-6.2)
--- NOTE | 2016-10-01 11:01 | PDOC PROGRESS REPORT ---
Subjective-OB Subjective: Post Delivery Day: 30 year old. Denies any needs at this time. Pt doing well, no concerns. She denies headache, vision changes and epigastric pain. Bleeding is light, voiding well and well. BP meds added, PIH labs drawn. Physical Exam (OB) Vital Signs: Temp Pulse Resp BP Pulse Ox 98.5 F 88 16 144/90 H 100 10/01/16 10:26 10/01/16 10:26 10/01/16 10:26 10/01/16 10:26 10/01/16 10:26 Intake & Output 09/30/16 10/01/16 10/02/16 06:59 06:59 06:59 Intake Total 3190 650 Output Total 1970 Balance 1220 650 Weight 113.4 kg - PIH/Pre-Eclampsia DTR's: 1 + Clonus: Negative Headache: Absent Epigastric Pain: No Visual Changes: No - Dressing Removed: No - opsite Incision: Draining Closure Type: Sutures - Lochia Lochia Amount: Small 10-25 ml Lochia Color: Rubra/Red - Abdomen Description: Soft, Round Hernia Present: No Fundal Description: Firm, Midline Fundal Height: u/u - u/2 Objective-Diagnostic Laboratory: 10/01/16 09:59 10/01/16 09:59 10/01/16 10/01/16 09:59 09:59 WBC 10.9 H RBC 3.73 Hgb 9.4 L Hct 28.7 L MCV 77 L MCH 25.1 L MCHC 32.7 RDW 17.0 H Plt Count 332 Sodium 137.5 Potassium 3.8 Chloride 106 Carbon Dioxide 24 Anion Gap 8 BUN 5 L Creatinine 0.67 Est GFR ( Amer) > 60 Est GFR (Non-Af Amer) > 60 Glucose 88 Uric Acid 3.8 Calcium 8.5 Total Bilirubin 0.4 AST 23 ALT 23 Alkaline Phosphatase 104 Total Protein 5.8 L Albumin 3.0 L Assessment and Plan(PN) - Assessment and Plan (1) Hypertension Qualifiers: Hypertension type: unspecified Qualified Code(s): I10 - Essential ( primary) hypertension Is this a current diagnosis for this admission?: Yes (2) Delivery by section of full-term Is this a current diagnosis for this admission?: Yes (3) Morbid obesity Is this a current diagnosis for this admission?: Yes - Time Spent with Patient Time with patient: Less than 15 minutes Medications reviewed and adjusted accordingly: Yes - Disposition Anticipated Discharge: Home Within: within 24 hours
[2016-10-02] MEDS: IBUPROFEN 800 MG TABLET PO SCH ×3 (00:05→11:22)
[2016-10-02] MEDS: PRENATAL VITAMIN W-O CA NO5/FE FUMARATE/FA CAPSULE PO SCH (09:47)
[2016-10-02] MEDS: DOCUSATE SODIUM 100 MG CAPSULE PO SCH (09:47)
--- NOTE | 2016-10-02 11:52 | PDOC DISCHARGE SUMMARY ---
Final Diagnosis Discharge Date: 10/02/16 - Final Diagnosis (1) Hypertension Is this a current diagnosis for this admission?: Yes (2) Delivery by section of full-term infant Is this a current diagnosis for this admission?: Yes (3) Morbid obesity Is this a current diagnosis for this admission?: Yes Discharge Data - Discharge Medication Home Medications: Montelukast Sodium [Singulair 10 mg Tablet] 10 mg PO QHS 05/20/16 Pnv with Ca,No.72/Iron/FA [Pnv Plus Multivit Tab] 1 tab PO DAILY Reason(s) for Admission: Ceasarean Section-Repeat, Obstetric Complications, PIH Procedures: NST Intrapartum Procedure(s): : Low Cervical, Transverse - Diagnosis Test Laboratory: Temp Pulse Resp BP Pulse Ox 97.5 F 88 17 153/95 H 100 10/02/16 11:27 10/02/16 11:27 10/02/16 11:27 10/02/16 11:27 10/02/16 11:27 09/30/16 10/01/16 06:49 09:59 RBC 3.86 3.73 Hgb 9.8 L 9.4 L Hct 29.9 L 28.7 L - Discharge information/Instructions Discharge Activity: Balance Activity w/Rest, No Lifting Over 10 Pounds, No Lifting/Push/Pulling, Pelvic Rest, No tub bath Discharge Diet: Regular Disposition: HOME, SELF-CARE Follow up with: [facility] in: 5, Days
[2016-10-02 12:05] VITALS: BP 150/98
--- NOTE | 2016-11-14 10:03 | PDOC DELIVERY SUMMARY ---
Delivery Summary - Maternal Hx : IV Hx # Term Pregnancies: 2 Hx # Pregnancies: 0 JOSEPH: 10/12/16 - Delivery Presentation: Vertex Heart Rate Monitoring: Done Pre-Operatively Support Person Present: Yes Location: OR : Scheduled, Repeat Delivery of Placenta Date: 09/29/16 Delivery of Placenta Time: 10:00 - Medications Type of Anesthesia:: Spinal - Assess and Care Baby 1 Male Delivery of Infant Date: 09/29/16 Delivery of Time: 09:56 at 1 minute: 3 at 5 minutes: 8 Preprinted Number On Band: [id number] Infant Skin to Skin: No To Nursery At: 10:13 Mode of Transport: Bassinet Infant Delivery Weight: 2745 kg - Delivery 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
== END 2016-10-02 12:23 | disposition home or self-care (01) | DRG 765 ==
LOC: 2S 06:33
PROVIDERS: ADMIT Obstetrics & Gynecology; ATTEND Obstetrics & Gynecology
PROC: 0UB70ZZ Excision of Bilateral Fallopian Tubes, Open Approach (ICD-10-PCS; 2016-09-29)
PROC: 4A1HXCZ Monitoring of Products of Conception, Cardiac Rate, External Approach (ICD-10-PCS; 2016-09-29)
PROC: 10D00Z1 Extraction of Products of Conception, Low, Open Approach (ICD-10-PCS; principal; 2016-09-29 09:15)
DX: O34.211 Maternal care for low transverse scar from previous cesarean delivery (principal); Z68.41 Body mass index [BMI] 40.0-44.9, adult; E66.01 Morbid (severe) obesity due to excess calories; O11.4 Pre-existing hypertension with pre-eclampsia, complicating childbirth; O99.52 Diseases of the respiratory system complicating childbirth; J45.909 Unspecified asthma, uncomplicated; O99.284 Endocrine, nutritional and metabolic diseases complicating childbirth; O24.420 Gestational diabetes mellitus in childbirth, diet controlled; E03.9 Hypothyroidism, unspecified; O99.02 Anemia complicating childbirth; D50.9 Iron deficiency anemia, unspecified; Z30.2 Encounter for sterilization; Z83.3 Family history of diabetes mellitus; Z37.0 Single live birth
CPT/HCPCS: 1961; 36415; 59025; 80053; 82962; 83615; 84550; 85027; 86850; 86900; 86901; 88302; 88307; 94799; J0131; J2250; J2270; J2405; J2590; J2704; J3010; J3490; J7120; S0028